=== PATIENT | female | born 1990 | race African-American/Black ===

== ENCOUNTER 2022-08-12 18:52 | Emergency (ER) | payer OTHER, SELFPAY ==
--- OUTSIDE RECORDS SUMMARY | 2022-08-12 19:26 | XMS REPORT | Continuity of Care Document ---
:1990 Author Organization [facility] t Address [address] [place] [address] Care Team Providers Name Role Phone PCP, PATIENT DOES NOT HAVE A Primary Care Physician Unavaila DAJA Wilks Attending Clinician Unavailable Daja Jaimes DO Attending Clinician GAVIN BRAUN Attending Clinician Unavailable Gavin Stone Attending Clinician Toi Dickinson Attending Clinician Unavailable González Phillips MD Attending Clinician DAJA JAIMES Admitting Clinician Unavailable Payers Payer Name Policy Type Policy Number Effective Date Expiration Date S ource Problems Condition Condition Condition Status Onset Resolution Last Treating Co mments Source Name Details Category Date Date Treatment Clinician Date Well woman Well woman Disease Active U nivers exam exam 08-08 ity of 00:00: [address] Missed Missed Disease Active Univers menses menses 07-25 ity of 00:00: [address] Encounter Encounter Disease Active Uni vers for for 1-15 ity of Depo[place] Medical contracept contracept Br anch ion ion Overweight Overweight Disease Active Overview : Univers 07-25 Formattin ity of 00:00: g of this note Medical might be Branch different from the original. ICD10 Diagnosis Term Chief Operating Engineer Utility Dysmenorrh Dysmenorrh Disease Active U nivers ea ea 07-25 ity of 00:00: [place] 00 Medical Branch Contracept Contracept Disease Active 2013-03 Overview : Univers kendra kendra 1-20 Formattin ity of management management 00:00: g of this note Medical might be Branch different from the original. ICD10 Diagnosis Term Chief Operating Engineer Utility UTI UTI Disease Active Univers (urinary (urinary 3-03 ity of tract tract 00:00: [place] infection) infection) 00 Me dical Branch Bacterial Bacterial Disease Active Uni vers vaginosis vaginosis 2- ity of 00:00: [place] 00 [facility] Problem Condition [facility] Allergies, Adverse Reactions, Alerts Allergy Allergy Status Severity Reaction(s) Onset Inactive Treating Comm ents Source Name Type Date Date Clinician NO KNOWN Drug Active Univers ALLERGIE Class ity of S [facility] Social History Social Habit Start Date Stop Date Quantity Comments Source Exposure to 2022-06-17 2022-06-27 Not sure [facility] SARS-CoV-2 00:00:00 22:56:00 [facility] (event) [place] Alcohol intake 2022-06-25 2022-06-25 0 /d University of 00:00:00 00:00:00 [facility] Tobacco use and 2014-12-18 2014-12-18 Smokeless tobacco Un iversity of exposure 00:00:00 00:00:00 non-user [facility] Tobacco Comment 2014-12-18 2014-12-18 smokes 3 times Unive rsity of 00:00:00 00:00:00 per day [facility] Alcohol Comment 2014-12-18 2014-12-18 socially Universit y of 00:00:00 00:00:00 [facility] History of 2013-01-02 Cigarette Smoker Universi ty of tobacco use 00:00:00 [facility] Sex Assigned At [address] [facility] 00[facility]00[facility]00 00:00:[address] [facility] Smoking Status Start Date Stop Date Source Unknown if ever smoked [facility] Smokes tobacco daily 2014-12-18 00:00:00 Univers [facility] [place] [facility] Medications Ordered Filled Start Stop Current Ordering Indication Dosage Frequency Signature Comments Components Source Medication Medication Date Date Medication? Clinician (SIG) Name Name haloperidol 2022- No 2.5mg 2.5 mg, U nivers lactate 06-28 Intravenou ity o f (HALDOL) 06:15: 06:17 [place], [place]CE[place] 1 [place] :[place] dose, On Medica l 2.5 mg Wed Branch 06/28/22 at 0115, STAT iopamidol 2022- No [id number] 80mL 80 mL, Univers (ISOVUE 06-28 Intravenou ity o f 370-500 mL) 05:30: 05:30 s, ONCE, 1 [place] injection 00 :00 dose, On Medica l 80 mL Wed Branch 06/28/22 at 0030, Routine ketorolac 2022- No 15mg 15 mg, Unive rs (TORADOL) 06-28 Slow IV ity of injection 05:15: 04:23 Push, [place] 15 mg 00 :00 ONCE, 1 Medical dose, On Branch 06/28/22 at 0015, BEATRICE proMETHazin 2022- No 12.5mg 12.5 mg, Univers e 06-28 IV ity of (PHENERGAN) 04:15: 04:23 Piggyback, [place] 12.5 mg in 00 :00 ONCE, 1 Medica l NaCl 0.9% dose, On Branch (NS) 50 mL Tue IV 06/27/22 at piggyback 2315, BEATRICE ondansetron 2022- No 4mg 4 mg, Slow Univers (ZOFRAN 06-26 IV Push, ity of (PF)) 04:15: 04:12 ONCE, 1 [place] injection 4 00 :00 dose, On Medi annamarie mg Sun Branch 06/25/22 at 2315, BEATRICE proMETHazin 2022-0 Yes [id number] 25mg Take 1 Univers e 25 mg -23 tablet by ity of tablet 00:00: mouth [place] 00 every 6 Medical (six) Branch hours as needed for Nausea and Vomiting (N/V). proMETHazin Yes [id number] 25mg Take 1 Univers e 25 mg 4-23 tablet by ity of tablet 00:00: mouth [place] 00 every 6 Medical (six) Branch hours as needed for Nausea and Vomiting (N/V). ketorolac 2020- No 60mg 60 mg, Unive rs (TORADOL) 09-29 Intramuscu ity of injection 08:15: 07:08 lar, ONCE, [place] 60 mg 00 :00 1 dose, Medical Tue Branch 09/30/19 at 0315, BEATRICE
Fa culty member approving Restricted medication : CLEMENCIADAVIDGONZÁLEZ traMADol 2019-0 Yes [id number] 50mg Take 1 Univers (ULTRAM) 50 7-28 tablet by ity of mg tablet 00:00: mouth [place] 00 every 6 Medical (six) Branch hours as needed for Pain (scale 7-10). Indication s: acute pain amoxicillin 2019-0 Yes [id number] 500mg Take 1 Univers 500 mg 7-28 capsule by ity of capsule 00:00: mouth 3 [place] 00 (three) Medical times Branch daily. traMADol 2019-0 Yes [id number] 50mg Take 1 Univers (ULTRAM) 50 7-28 tablet by ity of mg tablet 00:00: mouth [place] 00 every 6 Medical (six) Branch hours as needed for Pain (scale 7-10). Indication s: acute pain amoxicillin 2019-0 Yes [id number] 500mg Take 1 Univers 500 mg 7-28 capsule by ity of capsule 00:00: mouth 3 [place] 00 (three) Medical times Branch daily. traMADol 2020-0 Yes [id number] 50mg Take 1 Univers (ULTRAM) 50 7-28 tablet by ity of mg tablet 00:00: mouth [place] 00 every 6 Medical (six) Branch hours as needed for Pain (scale 7-10). Indication s: acute pain amoxicillin 2019-0 Yes [id number] 500mg Take 1 Univers 500 mg 7-28 capsule by ity of capsule 00:00: mouth 3 [place] 00 (three) Medical times Branch daily. metroNIDAZO Yes 500mg Take 1 Uni vers LE 500 mg 7-31 tablet by ity o f tablet 00:00: mouth 2 [place] 00 (two) Medical times Branch daily. metroNIDAZO 2016-0 Yes 500mg Take 1 Uni vers LE 500 mg 7-31 tablet by ity o f tablet 00:00: mouth 2 00 (two) Medical times Branch daily. metroNIDAZO Yes 500mg Take 1 Uni vers LE 500 mg 7-31 tablet by ity o f tablet 00:00: mouth 2 [place] 00 (two) Medical times Branch daily. acetaminoph Yes 1{tbl} Take 1 Un jose en-codeine 9-06 tablet by ity of (TYLENOL-CO 00:00: mouth [place] DEINE #3) 00 every 6 Medical 300-30 mg (six) Branch tablet hours as needed for Pain unrelieved by non-narcot ic analgesics . acetaminoph Yes 1{tbl} Take 1 Un jose en-codeine 9-06 tablet by ity of (TYLENOL-CO 00:00: mouth [place] DEINE #3) 00 every 6 Medical 300-30 mg (six) Branch tablet hours as needed for Pain unrelieved by non-narcot ic analgesics . acetaminoph Yes 1{tbl} Take 1 Un jose en-codeine 9-06 tablet by ity of (TYLENOL-CO 00:00: mouth [place] DEINE #3) 00 every 6 Medical 300-30 mg (six) Branch tablet hours as needed for Pain unrelieved by non-narcot ic analgesics . Nitrofurant Yes [id number] 100mg Take 1 Cap Univers oin&Nit. 1-15 by mouth 2 ity o f Macrocryst 00:00: (two) [place] (MACROBID) 00 times Medical 100 mg daily. Branch capsule Nitrofurant Yes [id number] 100mg Take 1 Cap Univers oin&Nit. 1-15 by mouth 2 ity o f Macrocryst 00:00: (two) [place] (MACROBID) 00 times Medical 100 mg daily. Branch capsule Nitrofurant Yes [id number] 100mg Take 1 Cap Univers oin&Nit. 1-15 by mouth 2 ity o f Macrocryst 00:00: (two) [place] (MACROBID) 00 times Medical 100 mg daily. Branch capsule Immunizations Ordered Filled Immunization Date Status Comments [facility] e Immunization Name Name HPV9 2016-08-08 Completed [facility] 00:00:00 [facility] HPV9 2016-08-08 Completed University of 00:00:00 [facility] HPV9 2016-08-08 Completed University of 00:00:00 [facility] TDAP (ADACEL) 2016-03-10 Completed University of VACCINE 00:00:00 [facility] TDAP (ADACEL) 2016-03-10 Completed University of VACCINE 00:00:00 [facility] TDAP (ADACEL) 2016-03-10 Completed University of VACCINE 00:00:00 [facility] HPV 2015-03-19 Completed University of 00:00:00 [facility] HPV 2015-03-19 Completed University of 00:00:00 [facility] HPV 2015-03-19 Completed University of 00:00:00 [facility] Rubella 2009-09-22 Completed University of 00:00:00 [facility] Rubella 2009-09-22 Completed University of 00:00:00 [facility] Rubella 2009-09-22 Completed University of 00:00:00 [facility] TD, NOS 2005-03-05 Completed University of 00:00:00 [facility] Td 2005-03-05 Completed University of 00:00:00 [facility] TD, NOS 2005-03-05 Completed University of 00:00:00 [facility] Vital Signs Vital Name Observation Time Observation Value Comments Source Heart rate 2022-06-28 05:00:00 89 /min [facility] Respiratory rate 2022-06-28 05:00:00 18 /min [facility] Oxygen saturation in 2022-06-28 05:00:00 99 /min [facility] Arterial blood by [facility] Pulse oximetry Branch Systolic blood 2022-06-28 05:00:00 102 mm[Hg] Univer sity of pressure [facility] Diastolic blood 2022-06-28 05:00:00 77 mm[Hg] Unive rsity of pressure [facility] Body temperature 2022-06-28 03:54:00 36.33 [facility]iana [facility] height 2022-06-28 03:54:00 172.7 cm [facility] Body weight 2022-06-28 03:54:00 83.915 kg [facility] BMI 2022-06-28 03:54:00 28.13 kg/m2 [facility] Systolic blood 2022-06-26 04:00:00 125 mm[Hg] Univer sity of pressure [place] [facility] Diastolic blood 2022-06-26 04:00:00 88 mm[Hg] Unive rsity of pressure [place] [facility] Heart rate 2022-06-26 04:00:00 70 /min [facility]i ty [facility] [place] [facility] Respiratory rate 2022-06-26 04:00:00 15 /min Univ ersity of [place] [facility] Oxygen saturation in 2022-06-26 04:00:00 100 /min University of Arterial blood by [facility] Pulse oximetry Branch Body temperature 2022-06-26 02:38:00 37.39 Cristiana Univ ersity [facility] [place] [facility] Body height 2022-06-26 02:38:00 172.7 cm [facility]i ty [facility] [place] [facility] Body weight 2022-06-26 02:38:00 83.915 kg [facility] [place] [facility] BMI 2022-06-26 02:38:00 28.13 kg/m2 [facility] [place] [facility] Systolic blood 2019-09-30 06:30:00 147 mm[Hg] Univer sity of pressure [place] [facility] Diastolic blood 2019-09-30 06:30:00 85 mm[Hg] Unive rsity of pressure [place] [facility] Heart rate 2019-09-30 06:30:00 85 /min [facility]i ty [facility] [place] [facility] Body temperature 2019-09-30 06:30:00 37.28 Cristiana Univ ersity [facility] [place] [facility] Respiratory rate 2019-09-30 06:30:00 20 /min Univ ersity [facility] [place] [facility] Body weight 2019-09-30 06:30:00 87.544 kg [facility] [place] [facility] BMI 2019-09-30 06:30:00 30.23 kg/m2 [facility] [place] [facility] Oxygen saturation in 2019-09-30 06:30:00 99 /min University of Arterial blood by [facility] Pulse oximetry Branch Systolic blood 2019-09-30 06:30:00 147 mm[Hg] Univer sity of pressure [place] [facility] Diastolic blood 2019-09-30 06:30:00 85 mm[Hg] Unive rsity of pressure [place] [facility] Heart rate 2019-09-30 06:30:00 85 /min [facility] [place] [facility] Body temperature 2019-09-30 06:30:00 37.28 Cristiana [facility] Respiratory rate 2019-09-30 06:30:00 20 /min [facility] Body weight 2019-09-30 06:30:00 87.544 kg [facility] BMI 2019-09-30 06:30:00 30.23 kg/m2 [facility] Oxygen saturation in 2019-09-30 06:30:00 99 /min [facility] blood by [facility] Pulse oximetry Branch Procedures Procedure Date / Time Performing Clinician Source Performed LIPASE 2022-06-28 04:08:00 Daja Jaimes [facility] COMP. METABOLIC PANEL 2022-06-28 04:08:00 Daja Jaimes [facility] ([id number] URINE DRUG (IMMUNOASSAY) 2022-06-28 04:08:00 Daja Jaimes [facility] - COMPREHENSIVE DRUG Medical Bra nch SCREEN CBC WITH DIFF 2022-06-28 04:08:00 Theodore [facility] URINALYSIS 2022-06-28 04:08:00 Theodore [facility] POCT TEST 2022-06-28 04:06:00 Daja Jaimes [facility] CONSENT/REFUSAL FOR 2022-06-28 03:36:24 Doctor Unassigned, No Un [facility] [facility] [place] DIAGNOSIS AND [facility] POCT TEST 2022-06-26 03:18:00 Gavin Braun [facility] COMP. METABOLIC PANEL 2022-06-26 03:17:00 [facility] ([id number]) [facility] CBC WITH DIFF 2022-06-26 03:17:00 Gavin Braun [facility] URINALYSIS 2022-06-26 03:17:00 Gavin Braun [facility] NOTICE OF PRIVACY 2022-06-26 02:30:49 Doctor Unassigned, No Univ [facility] PRACTICES [facility] CONSENT/REFUSAL FOR 2022-06-26 02:29:59 [facility]igned[facility] NOTICE OF PRIVACY 2019-09-30 06:22:28 Doctor Unassigned, No [facility] Name Medical Branch CONSENT/REFUSAL FOR 2019-09-30 06:22:16 Doctor Unassigned, No [facility] Name Medical Branch Encounters Start End Encounter Admission Attending Care Care Encounter Source Date/Time Date/Time Type Type Clinicians Facility Department ID 2020-12-31 Emergency [facility] [id number] Univers 09:10:02 ity [facility] 2022-06-27 2022-06-28 Emergency [facility] [id number] Univers 22:38:00 01:35:00 DAJA [facility] 2022-06-27 2022-06-28 [facility] [id number] Univers 22:38:00 01:35:00 Daja ESPINOZA [id number] i ty of [place] 4.2.7.2.686 [facility] [id number] [facility] 084 Branch 2022-06-25 2022-06-25 Emergency X BRAUN, [facility] ERT [id number] Univers 21:42:00 23:57:00 GAVIN spaulding [facility] 2022-06-25 2022-06-25 Emergency [facility] [id number] Univers 21:42:00 23:57:00 Gavin ESPINOZA [id number] i ty of [place] 4.2.7.2.686 [facility] [id number] [place] [address] Branch 2020-04-02 2020-04-02 [facility]ed [facility] [id number] 16:08:00 18:15:00 Emergency Toi Schwartz [facility]-EMERGEN l Health SERVICES/[facility] 2020-04-02 2020-04-02 Emergency ER [facility] [id number] 16:08:00 18:15:00 Toi -[id number] Kenny thompson [facility] 2019-09-30 2019-09-30 [facility] [id number] 01:30:53 02:32:00 González Espinoza [id number] [place] 4.2.7.2.686 [place] [id number] 2019-09-30 2019-09-30 Emergency Jacqueline [facility] [id number] Univers 01:30:53 02:32:00 González Espinoza [id number] ity of [place] 4.2.7.2.686 [facility] [id number] [place] [address] Branch Results Test Description Test Time Test Comments Results Result Comments Source POCT TEST 2022-06-28 04:06:00 Test Item Value Reference Range Interpretation Comme nts POCT PREG (test code = 1605) negative On board controls acceptable with C Line (test code = 3574) present POCT PREG LOT # (test code = 3575) [id number] POCT PREG TEST DATE (test code = 3576) Lab Interpretation (test code = 50291-6) [facility] (15971[facility]2022-06-26 03:54:43 Test Item Value Reference Range Interpretation Comments NA (test code = 140 mmol/L 135-145 5047275498) K (test code = 4.2 mmol/L 3.5-5.0 1617944414) CL (test code = 104 mmol/L 98-108 3024331706) CO2 TOTAL (test code 24 mmol/L 23-31 = 6787526325) AGAP (test code = 12 2-16 8355895682) BUN (test code = 17 mg/dL 7-23 6284175068) GLUCOSE (test code = 81 mg/dL 70-110 2936505719) CREATININE (test code 0.78 mg/dL 0.50-1.04 = 1512337875) TOTAL BILI (test code 0.3 mg/dL 0.1-1.1 = 9097114807) CALCIUM (test code = 9.5 mg/dL 8.6-10.6 1411149603) T PROTEIN (test code 7.5 g/dL 6.3-8.2 = 3267114929) ALBUMIN (test code = 4.4 g/dL 3.5-5.0 3587544042) ALK PHOS (test code = 41 U/L 34-122 1493151348) ALTv (test code = 18 U/L 5-35 2-6) AST(SGOT) (test code 18 U/L 13-40 = 2466340394) eGFR (test code = 86.1 mL/min/1.73m2 8975449856) MATT (test code = MATT) Association of Glomerular Filtration Rate (GFR) and Staging of Kidney Disease* + + +- +| GFR (mL/min/1.73 m2) ?| With Kidney Damage ?| ?Without Kidney Damage+ ------+ ----+ ------+| ?>90 ?| ?Stage one ?| ? Normal ?+ -+ + -+| ?60-89 ?| ?Stage two ?| ? Decreased GFR ? + + +- +| ?30-59 ?| ?Stage three ?| ? Stage three ? + + +- +| ?15-29 ?| ?Stage four ? | ? Stage four ?+ -+ + -+| ?<15 (or dialysis) ? ?| ?Stage five ? | ? Stage five ?+ -+ + -+ *Each stage assumes the associated GFR level has been in effect for at least three months. ?Stages 1 to 5, with or without kidney disease, indicate chronic kidney disease. Notes: Determination of stages one and two (with eGFR >59mL/min/1.73 m2) requires estimation of kidney damage for at least three months as defined by structural or functional abnormalities of the kidney, manifested by either:Pathological abnormalities or Markers of kidney damage (including abnormalities in the composition of the blood or urine or abnormalities in imaging tests). [facility] WITH [id number] 03:37:44 Test Item Value Reference Range Interpretation Comments WBC (test code = 8.55 See_Comment [Automated 0290-2) message] The sy stem which generated this result transmitted reference range : 4.30 - 11.10 10*3/?L. The reference range was not used to interpret this result as normal/abnormal . RBC (test code = 4.14 See_Comment [Automated 789-8) message] The sy stem which generated this result transmitted reference range : 3.93 - 5.25 10*6/?L. The reference range was not used to interpret this result as normal/abnormal . HGB (test code = 9.1 g/dL 11.6-15.0 L 718-7) HCT (test code = 30.7 % 35.7-45.2 L 4544-3) MCV (test code = 74.2 fL 80.6-95.5 L 787-2) MCH (test code = 22.0 pg 25.9-32.8 L 785-6) MCHC (test code = 29.6 g/dL 31.6-35.1 L 786-4) RDW-SD (test code = 45.4 fL 39.0-49.9 33385-6) RDW-CV (test code = 17.0 % 12.0-15.5 H 788-0) PLT (test code = 369 See_Comment H [Automated 777-3) message] The sy stem which generated this result transmitted reference range : 166 - 358 10*3/ ?L. The reference r philippe was not used to interpret this result as normal/abnormal . MPV (test code = 10.8 fL 9.5-12.9 98475-2) NRBC/100 WBC (test 0.0 See_Comment [Automat ed code = 2317274826) message] The system which generated this result transmitted reference range : 0.0 - 10.0 /100 WBCs. The refer ence range was not u sed to interpret th is result as normal/abnormal . NRBC x10^3 (test code See_Comment [Auto mated = 2037496222) message] The s ystem which generated this result transmitted reference range : 10*3/?L. The reference range was not used to interpret this result as normal/abnormal . GRAN MAT (NEUT) % 56.7 % (test code = 770-8) IMM GRAN % (test code 0.20 % = 4289645788) LYMPH % (test code = 32.3 % 736-9) MONO % (test code = 9.4 % 5905-5) EOS % (test code = 0.8 % 713-8) BASO % (test code = 0.6 % 706-2) GRAN MAT x10^3(ANC) 4.85 10*3/uL 1.88-7.09 (test code = 8786275345) IMM GRAN x10^3 (test 0.00-0.06 code = 2016492213) LYMPH x10^3 (test code 2.76 10*3/uL 1.32-3.29 = 731-0) MONO x10^3 (test code 0.80 10*3/uL 0.33-0.92 = 742-7) EOS x10^3 (test code = 0.07 10*3/uL 0.03-0.39 711-2) BASO x10^3 (test code 0.05 10*3/uL 0.01-0.07 = 704-7) Lab Interpretation Abnormal (test code = 40627-1) [id number] 03:18:00 Test Item Value Reference Range Interpretation Comments POCT PREG (test code = 1605) negative On board controls acceptable with present` C Line (test code = 3574) POCT PREG LOT # (test code = 3575) [id number] POCT PREG TEST DATE (test 10/11/2023 code = 3576) Lab Interpretation (test code = Normal 49175-7) [facility] [id number] 21:22:00 Test Item Value Reference Range Interpretation Comments Molecular Testing Not Detected NotDetected MM (test code = GCPCRT) Molecular Testing Not Detected NotDetected MM (test code = CHLAMPCRT) Molecular Testing MM (test code = PCRINTERP) Acc urate results are dep endent on adequate specimencollect ion, absence of inhi bitors and sufficient DNA to bedetected. Acc eptable specimens for t his test are vaginal orc ervical swabs (self col lected or clinician collected),firs t void urine (primary specimen for males), and liquidbased pap specimens.A res ult of "Inconclusive" warrants re-collection.V iability or infectivity can NOT be inferred sin ce targetDNA may p ersist in the absence of viable organisms. For Urine Sources Collect ion of urine volumes g reater than 20-40 mLs mayresult in sp ecimen dilution that m ay reduce testsens itivity; lesser volumes may not adequately rinseorganisms into the specimen Vaginitis Panel 3 by DNA [id number] 22:45:00 Test Item Value Reference Range Interpretation Comments Vaginitis Panel 3 by DNA Probe VPIIICANDI (test code = VP3) Vaginitis Panel 3 by DNA Probe N A (test code = VP31) Vaginitis Panel 3 by DNA Probe VPIIITRICH A (test code = VP31)
[2022-08-12 19:36] LABS: SARS-CoV-2 Antigen Rapid Res Negative (Negative)
[2022-08-12] MEDS ORDERED: LIDOCAINE VISCOUS 2% SOLN 15 ML UDC ONE (19:54)
[2022-08-12] MEDS ORDERED: MAGNES/ALUMIN/SIMET 30ML UCUP ONE (19:54)
[2022-08-12 20:26] LABS: Specific Gravity 1.025 (1.005-1.030); Urine Bacteria <20 /HPF (<20); Urine Bilirubin NEGATIVE (Negative); Urine Blood Negative (Negative); Urine Clarity Extremely Turbid (Clear); Urine Color Light-Yellow (Yellow); Urine Crystals Unidentified Few /HPF (None Seen); Urine Glucose NEGATIVE (Negative); Urine Mucus 2+ /HPF (None Seen); Urine Protein TRACE (Negative); Urine Urobilinogen Normal (Normal)
--- NOTE | 2022-08-12 20:55 | ER ---
Nurse's Notes [facility] Name: Clary Dias Age: 32 yrs Sex: Female : 1990 Arrival Date: 08/12/2022 Time: 18:52 Bed 11 Private MD: Diagnosis: Acute pharyngitis, unspecified Presentation: 08/12 18:58 Chief complaint: Patient states: SORE THROAT x3 DAYS. Coronavirus screen: At this time, bp the client does not indicate any symptoms associated with coronavirus-19. Ebola Screen: No symptoms or risks identified at this time. Initial Sepsis Screen: Does the patient meet any 2 criteria? No. Patient's initial sepsis screen is negative. Does the patient have a suspected source of infection? No. Patient's initial sepsis screen is negative. Risk Assessment: Do you want to hurt yourself or someone else? Patient reports no desire to harm self or others. Onset of symptoms is unknown. 18:58 Method Of Arrival: Ambulatory bp 18:58 Acuity: MARIA ISABEL 4 bp Triage Assessment: 19:00 General: Appears uncomfortable, ill, Behavior is calm, cooperative, appropriate for bp age. Pain: Complains of pain in neck. EENT: Throat has patchy exudate. Neuro: No deficits noted. Cardiovascular: No deficits noted. Respiratory: No deficits noted. GI: No signs and/or symptoms were reported involving the gastrointestinal system. : No signs and/or symptoms were reported regarding the genitourinary system. Derm: No deficits noted. Musculoskeletal: No deficits noted. Historical: - Allergies: 19:00 No Known Allergies; bp - Home Meds: 19:00 None [Active]; bp - PMHx: 19:00 None; bp - Immunization history:: Adult Immunizations up to date. - Social history:: Smoking status: Patient denies any tobacco usage or history of. Screenin:07 [facility] ED Fall Risk Assessment (Adult) History of falling in the last 3 months, pf1 including since admission No falls in past 3 months (0 pts) Confusion or Disorientation No (0 pts) Intoxicated or Sedated No (0 pts) Impaired Gait No (0 pts) Mobility Assist Device Used No (0 pt) Altered Elimination No (0 pt) Score/Fall Risk Level 0 - 2 = Low Risk Oriented to surroundings, Maintained a safe environment, Educated pt \T\ family on fall prevention, incl call for assistance when getting out of bed, Assessed \T\ reinforced patient's understanding of fall precautions, Provided non-skid footwear, Hourly rounding (assess needs \T\ fall precautionary measures) done, Used ambulatory aids as needed (educated on \T\ assisted with), Used gait belt as appropriate. Abuse screen: Denies threats or abuse. Nutritional screening: No deficits noted. Tuberculosis screening: No symptoms or risk factors identified. Assessment: 19:00 General: Appears in no apparent distress. comfortable, well groomed, well developed, pf1 Behavior is calm, cooperative, appropriate for age, quiet. 19:00 Pain: Complains of pain in sore throat. Neuro: No deficits noted. Level of pf1 Consciousness is awake, alert, obeys commands, Oriented to person, place, time, situation. Cardiovascular: No deficits noted. Capillary refill < 3 seconds Patient's skin is warm and dry. Respiratory: No deficits noted. Airway is patent Respiratory effort is even, unlabored, Respiratory pattern is regular, symmetrical. GI:. GI: Reports diarrhea. : No deficits noted. No signs and/or symptoms were reported regarding the genitourinary system. EENT: Reports sore throat for 3 days. Derm: No deficits noted. No signs and/or symptoms reported regarding the dermatologic system. 20:00 Reassessment: Patient appears in no apparent distress at this time. Patient and/or pf1 family updated on plan of care and expected duration. Pain level reassessed. Patient states symptoms have improved. Vital Signs: 18:58 BP 129 / 87; Pulse 94; Resp 16; Temp 98.2; Pulse Ox 100% ; bp 20:30 BP 141 / 86; Pulse 83; Resp 18; Temp 98.1(O); Pulse Ox 100% on R/A; Pain 4/10; pf1 20:30 Pain Scale: Adult pf1 ED Course: 18:55 Patient arrived in ED. im 18:56 Ju Guadalupe FNP-C [facility] kb 18:56 Nathaniel Corrigan MD is Attending Physician. kb 18:59 Triage completed. bp 19:00 Arm band placed on. bp 19:16 Strep Sent. bp 19:16 SARS RAPID Sent. bp 19:16 Flu Sent. bp 20:11 Urinalysis w/ reflexes Sent. pf1 Administered Medications: 19:50 Drug: GI Cocktail without - (Maalox PO Suspension 30 ml, Lidocaine Mucous pf1 Membrane Liquid 2 % 15 ml) Route: PO; 20:50 Follow up: Response: No adverse reaction; Marked relief of symptoms; Pain is decreased pf1 Outcome: 20:55 Discharge ordered by MD. carvajal 21:08 Patient left the ED. pf1 Signatures: Ju Guadalupe, KATIE-C KATIE-Xavier Nassar, MARILYN RN bp Loida Shetty, MARILYN RN pf1 Luz Bhandari
--- NOTE | 2022-08-12 20:55 | EDPHYS ---
Physician Documentation [facility] Name: Clary Dias Age: 32 yrs Sex: Female : 1990 Arrival Date: 08/12/2022 Time: 18:52 Bed 11 Private MD: ED Physician Nathaniel Corrigan HPI: 08/12 23:08 This 32 yrs old Black Female presents to ER via Ambulatory with complaints of Sore kb Throat. 23:08 The patient presents with sore throat. The patient describes throat pain as constant. kb Onset: The symptoms/episode began/occurred 3 day(s) ago. Severity of symptoms: At their worst the symptoms were moderate, in the emergency department the symptoms are unchanged. Modifying factors: The symptoms are alleviated by nothing, the symptoms are aggravated by swallowing, Patient's oral intake status: good. Associated signs and symptoms: Pertinent positives: diarrhea, Sore throat. The patient has not experienced similar symptoms in the past. The patient has not recently seen a physician. Historical: - Allergies: 19:00 No Known Allergies; bp - Home Meds: 19:00 None [Active]; bp - PMHx: 19:00 None; bp - Immunization history:: Adult Immunizations up to date. - Social history:: Smoking status: Patient denies any tobacco usage or history of. ROS: 23:08 Constitutional: Negative for fever, chills, and weight loss. kb 23:08 ENT: Positive for sore throat. 23:08 Abdomen/GI: Positive for diarrhea, Negative for abdominal pain, nausea and vomiting. 23:08 All other systems are negative. Exam: 23:08 Constitutional: This is a well developed, well nourished patient who is awake, alert, kb and in no acute distress. Head/Face: Normocephalic, atraumatic. ENT: Moist Mucous membranes Respiratory: Respirations even and unlabored. No increased work of breathing. Talking in full sentences Abdomen/GI: Soft, non-tender. No distention Skin: Warm, dry with normal turgor. Normal color. MS/ Extremity: Pulses equal, no cyanosis. Neurovascular intact. Full, normal range of motion. Neuro: Awake and alert, GCS 15, oriented to person, place, time, and situation. Moves all extremities. Normal gait. Vital Signs: 18:58 BP 129 / 87; Pulse 94; Resp 16; Temp 98.2; Pulse Ox 100% ; bp 20:30 BP 141 / 86; Pulse 83; Resp 18; Temp 98.1(O); Pulse Ox 100% on R/A; Pain 4/10; pf1 20:30 Pain Scale: Adult pf1 MDM: 18:56 Patient medically screened. kb 23:09 Differential diagnosis: pharyngitis, strep, viral illness, covid, flu. Data reviewed: kb vital signs, nurses notes. Counseling: I had a detailed discussion with the patient and/or guardian regarding: the historical points, exam findings, and any diagnostic results supporting the discharge/admit diagnosis, lab results, the need for outpatient follow up, a family practitioner, to return to the emergency department if symptoms worsen or persist or if there are any questions or concerns that arise at home. 08/12 19:01 Order name: Flu; Complete Time: 19:55 bp 08/12 19:01 Order name: SARS RAPID; Complete Time: 19:55 bp 08/12 19:01 Order name: Strep bp 08/12 19:38 Order name: Throat Culture EDMS 08/12 20:03 Order name: Urinalysis w/ reflexes; Complete Time: 20:26 pf1 Administered Medications: 19:50 Drug: GI Cocktail without - (Maalox PO Suspension 30 ml, Lidocaine Mucous pf1 Membrane Liquid 2 % 15 ml) Route: PO; 20:50 Follow up: Response: No adverse reaction; Marked relief of symptoms; Pain is decreased pf1 Disposition: 08/13 09:33 Co-signature as Attending Physician, Nathaniel Corrigan MD I reviewed the patient's care rn provided by the Advanced Practice Provider and agree with the diagnosis and treatment plan. Disposition Summary: 08/12/22 20:55 Discharge Ordered Location: Home kb Condition: Stable kb Diagnosis - Acute pharyngitis, unspecified kb Followup: kb - With: Emergency Department - When: As needed - Reason: Worsening of condition Followup: kb - With: Private Physician - When: 2 - 3 days - Reason: Recheck today's complaints, Continuance of care, Re-evaluation by your physician Discharge Instructions: - Discharge Summary Sheet kb - Pharyngitis, [id number] kb Forms: - Medication Reconciliation Form kb - Thank You Letter kb - Antibiotic Education kb - Prescription Opioid Use kb Signatures: Dispatcher [employer] Ju Luna, CLE[employer]ER [employer]ER-C CLE[employer]ER [employer] POL[employer]ER-Ckb Nathaniel Corrigan MD MD rn Xavier Neff, RN RN Loida Pinon RN RN pf1
[2022-08-12 21:27] VITALS: O2SAT 100
[2022-08-12 21:29] VITALS: BP 141/86; TEMP 98.1
== END 2022-08-12 21:08 | disposition home or self-care (01) ==
LOC: ER 18:52
DX: J02.9 Acute pharyngitis, unspecified (principal)
CPT/HCPCS: 36415; 81001; 87070; 87081; 87804; 87811; 99283

== ENCOUNTER → 2023-05-09 | Emergency (ER) | payer OTHER ==
[~2023-05-09] MED LIST: CEPHALEXIN 250 MG CAP ONE; FAMOTIDINE 20 MG/2 ML VIAL IV ONE; IBUPROFEN 400 MG TAB ONE; KETOROLAC 30 MG/ML INJ ONE; METOCLOPRAMIDE 10 MG/2mL INJ ONE; MORPHINE 4 MG/ML SYR ONE; NA CHLORIDE 0.9% 1,000 ML ONE; ONDANSETRON 4 MG (ODT) TAB ONE; ONDANSETRON 4 MG/2 ML VIAL ONE; PANTOPRAZOLE 40MG TABLET PO ONE; metroNIDAZOLE 500 MG TABLET ONE
--- OUTSIDE RECORDS SUMMARY | 2023-05-09 01:17 | XMS REPORT | Continuity of Care Document ---
Author Name Unknown Address [address] [facility] [address] [place] [address] [facility] thconnect Address [address] [facility]. [address] [place] [address] Care Team Providers Care Pharmacy General Manager Name Role Phone Pcp, Patient Does Not Have A Primary Care Physic ashley YEIMY ELIZONDO Attending Clinician Unavailable MARU HOGAN Attending Clinician UnavailMARU Farley Attending Clinician UnavailMaru Farley MD Attending Clinician [phone] Callum PEACE Attending Clinician Unavailable Callum Titus Attending Clinician [phone] Doctor Unassigned, [place] Attending Clinician U DARREL Alvarado Attending Clinician Unavailable Darrel Parker MD Attending Clinician [phone] DAJA JAIMES Attending Clinician Unavailab Daja King DO Attending Clinician [phone] GAVIN BRAUN Attending Clinician Unavailable Gavin Stone Attending Clinician [phone] Toi Dickinson Attending Clinician Unavailable González Phillips MD Attending Clinician [phone] DAJA JAIMES Admitting Clinician Unavailab le Payers Payer Name Policy Type Policy Number Effective Date Expirati on Date Source [employer] EXCHANGE [id number] 2023 00:00:00 Problems Condition Name Condition Details Condition Category Status Onset Date Resolution Date Last Treatment Date Treating Clinician Comments Source Well woman exam Well woman exam Disease Active 08-08 00:00: 00 [facility] Missed menses Missed menses Disease Active 07-25 00:00: 00 [facility] Encounter for Depo-Prove ra contracept ion Encounter for Depo-Prove ra contracept ion Disease Active 03-19 00:00: 00 [facility] Overweight Overweight Disease Active 07-25 00:00: 00 Overview: Formattin g of this note might be different from the original. ICD10 Diagnosis Term [employer] [facility] Dysmenorrh ea Dysmenorrh ea Disease Active 07-25 00:00: 00 [facility] Contracept kendra management Contracept kendra management Disease Active 2013-03 00:00: 00 Overview: Formattin g of this note might be different from the original. ICD10 Diagnosis Term [employer] [facility] UTI (urinary tract infection) UTI (urinary tract infection) Disease Active 3-03 00:00: 00 [facility] Bacterial vaginosis Bacterial vaginosis Disease Active 2- 00:00: 00 [facility] Problem Condition [facility] Allergies, Adverse Reactions, Alerts Allergy Name Allergy Type Status Severity Reaction(s) Onset Date Inactive Date Treating Clinician Comments Source NO KNOWN ALLERGIE S Drug Class Active [facility] Social History Social Habit Start Date Stop Date Quantity Comments Source Gender identity [facility] Sexual orientation [facility] History of Social function 2023-02-28 00:00:00 2023-02-28 00:00:00 [facility] Alcohol intake 2023-02-28 00:00:00 2023-02-28 00:00:00 0 /d [facility] Tobacco use and exposure 2023-02-28 00:00:00 2023-02-28 00:00:00 Smokeless tobacco non-user [facility] Tobacco Comment 2023-02-28 00:00:00 2023-02-28 00:00:00 smokes 3 times per day [facility] Exposure to SARS-CoV-2 (event) 2022-06-17 00:00:00 2022-06-27 22:56:00 Not sure [facility] Alcohol Comment 2014-12-18 00:00:00 2014-12-18 00:00:00 socially [facility] History of tobacco use 2013-01-02 00:00:00 Cigarette Smoker [facility] Sex Assigned At 1990 00:00:00 1990 00:00:00 Female [facility] Smoking Status Start Date Stop Date Source Unknown if ever smoked [facility] Never smoked tobacco [facility] Smokes tobacco daily 2014-12-18 00:00:00 [facility] Medications Ordered Medication Name Filled Medication Name Start Date Stop Date Current Medication? Ordering Clinician Indication Dosage Frequency Signature (SIG) Comments Components Source predniSONE (DELTASONE) tablet 20 mg 2022-03 08:00: 00 01-10 07:55 :00 No 20mg 20 mg, Oral, ONCE, 1 dose, On Sun01/10/23 at 0200, BEATRICE [facility] methylPREDN ISolone (MEDROL, LUIS,) 4 mg tablets 2022-03 00:00: 00 Yes [id number] Take by mouth SEE-INSTRU CTIONS. follow package directions [facility] chlorhexidi ne 0.12 % mouthwash 2022-03 00:00: 00 Yes [id number] 15mL Swish and spit out 15 mL in the morning and 15 mL in the evening. [facility] methylPREDN ISolone (MEDROL, LUIS,) 4 mg tablets 2022-03 00:00: 00 Yes [id number] Take by mouth SEE-INSTRU CTIONS. follow package directions [facility] chlorhexidi ne 0.12 % mouthwash 2022-03 00:00: 00 Yes [id number] 15mL Swish and spit out 15 mL in the morning and 15 mL in the evening. [facility] methylPREDN ISolone (MEDROL, LUIS,) 4 mg tablets 2022-03 00:00: 00 Yes [id number] Take by mouth SEE-INSTRU CTIONS. follow package directions [facility] chlorhexidi ne 0.12 % mouthwash 2022-03 00:00: 00 Yes [id number] 15mL Swish and spit out 15 mL in the morning and 15 mL in the evening. [facility] chlorhexidi ne 0.12 % mouthwash 10-08 00:00: 00 Yes [id number] 15mL Swish and spit out 15 mL in the morning and 15 mL in the evening. [facility] chlorhexidi ne 0.12 % mouthwash 10-08 00:00: 00 Yes [id number] 15mL Swish and spit out 15 mL in the morning and 15 mL in the evening. [facility] chlorhexidi ne 0.12 % mouthwash 10-08 00:00: 00 Yes [id number] 15mL Swish and spit out 15 mL in the morning and 15 mL in the evening. [facility] chlorhexidi ne 0.12 % mouthwash 10-08 00:00: 00 Yes [id number] 15mL Swish and spit out 15 mL in the morning and 15 mL in the evening. [facility] chlorhexidi ne 0.12 % mouthwash 10-08 00:00: 00 Yes [id number] 15mL Swish and spit out 15 mL in the morning and 15 mL in the evening. [facility] acetaminoph en-codeine 300-30 mg tablet 10-08 00:00: 00 10-16 04:59 :00 No [id number] 1{tbl} Take 1 tablet by mouth every 4 (four) hours as needed for Pain (scale 7-10) for up to 7 days. Indication s: acute pain [facility] predniSONE 20 mg tablet 8-06 00:00: 00 10-14 04:59 :00 No [id number] 20mg Take 1 tablet by mouth in the morning and 1 tablet in the evening. Do all this for 5 days. [facility] haloperidol lactate (HALDOL) injection 2.5 mg 06-28 06:15: 00 06-28 06:17 :00 No 2.5mg 2.5 mg, Intravenou s, ONCE, 1 dose, On Sun06/28/22 at 0115, STAT [facility] iopamidol (ISOVUE 370-500 mL) injection 80 mL 06-28 05:30: 00 06-28 05:30 :00 No [id number] 80mL 80 mL, Intravenou s, ONCE, 1 dose, On Sun06/28/22 at 0030, Routine [facility] ketorolac (TORADOL) injection 15 mg 06-28 05:15: 00 06-28 04:23 :00 No 15mg 15 mg, Slow IV Push, ONCE, 1 dose, [facility]28[facility] (PHENERGAN) 12.5 mg in NaCl 0.9% (NS) 50 mL IV piggyback 06-28 04:15: 00 06-28 04:23 :00 No 12.5mg 12.5 mg, IV Piggyback, ONCE, 1 dose, [facility] Sun06/27/22 [facility] 2315[facility] ondans[facility]ron (ZOFRAN (PF)) injection 4 mg 06-26 04:15: 00 06-26 04:12 :00 No 4mg 4 mg, Slow IV Push, ONCE, 1 dose, On Sun06/25/22 at 2315, [facility] proMETHazin e 25 mg tablet 06-25 00:00: 00 Yes [id number] 25mg Take 1 tablet by mouth every 6 (six) hours as needed for Nausea and Vomiting (N/V). [facility] proMETHazin e 25 mg tablet 06-25 00:00: 00 Yes [id number] 25mg Take 1 tablet by mouth every 6 (six) hours as needed for Nausea and Vomiting (N/V). [facility] proMETHazin e 25 mg tablet 06-25 00:00: 00 Yes [id number] 25mg Take 1 tablet by mouth every 6 (six) hours as needed for Nausea and Vomiting (N/V). [facility] proMETHazin e 25 mg tablet 06-25 00:00: 00 Yes [id number] 25mg Take 1 tablet by mouth every 6 (six) hours as needed for Nausea and Vomiting (N/V). [facility] proMETHazin e 25 mg tablet 06-25 00:00: 00 Yes [id number] 25mg Take 1 tablet by mouth every 6 (six) hours as needed for Nausea and Vomiting (N/V). [facility] proMETHazin e 25 mg tablet 06-25 00:00: 00 Yes [id number] 25mg Take 1 tablet by mouth every 6 (six) hours as needed for Nausea and Vomiting (N/V). [facility] proMETHazin e 25 mg tablet 06-25 00:00: 00 Yes [id number] 25mg Take 1 tablet by mouth every 6 (six) hours as needed for Nausea and Vomiting (N/V). [facility] ketorolac (TORADOL) injection 60 mg 09-29 08:15: 00 09-29 07:08 :00 No 60mg 60 mg, Intramuscu lar, ONCE, 1 dose, Sun09/30/19 at 0315, BEATRICE
Fa culty member approving Restricted medication : GONZÁLEZ PHILLIPS [facility] traMADol (ULTRAM) 50 mg tablet 09-29 00:00: 00 Yes [id number] 50mg Take 1 tablet by mouth every 6 (six) hours as needed for Pain (scale 7-10). Indication s: acute pain [facility] amoxicillin 500 mg capsule 09-29 00:00: 00 Yes [id number] 500mg Take 1 capsule by mouth 3 (three) times daily. [facility] traMADol (ULTRAM) 50 mg tablet 0 09-29 00:00: 00 Yes [id number] 50mg Take 1 tablet by mouth every 6 (six) hours as needed for Pain (scale 7-10). Indication s: acute pain [facility] amoxicillin 500 mg capsule 2019-0 7 00:00: 00 Yes [id number] 500mg Take 1 capsule by mouth 3 (three) times daily. [facility] traMADol (ULTRAM) 50 mg tablet 0 09-29 00:00: 00 Yes [id number] 50mg Take 1 tablet by mouth every 6 (six) hours as needed for Pain (scale 7-10). Indication s: acute pain [facility] amoxicillin 500 mg capsule 2019-0 09-29 00:00: 00 Yes [id number] 500mg Take 1 capsule by mouth 3 (three) times daily. [facility] traMADol (ULTRAM) 50 mg tablet 0 09-29 00:00: 00 Yes [id number] 50mg Take 1 tablet by mouth every 6 (six) hours as needed for Pain (scale 7-10). [facility]: [facility] 09-29 00:00: 00 Yes [id number] 500mg Take 1 capsule by mouth 3 (three) times daily. [facility] it[facility] traMADol (ULTRAM) 50 mg tablet 0 09-29 00:00: 00 Yes [id number] 50mg Take 1 tablet by mouth every 6 (six) hours as needed for Pain (scale 7-10). Indication s: [facility] 0 09-29 00:00: 00 Yes [id number] 500mg Take 1 capsule by mouth 3 (three) times daily. [facility] traMADol (ULTRAM) 50 mg tablet 0 09-29 00:00: 00 Yes [id number] 50mg Take 1 tablet by mouth every 6 (six) hours as needed for Pain (scale 7-10). Indication s: acute pain [facility] amoxicillin 500 mg capsule 2019-0 09-29 00:00: 00 Yes [id number] 500mg Take 1 capsule by mouth 3 (three) times daily. [facility] traMADol (ULTRAM) 50 mg tablet 09-29 00:00: 00 Yes [id number] 50mg Take 1 tablet by mouth every 6 (six) hours as needed for Pain (scale 7-10). Indication s: acute pain [facility] amoxicillin 500 mg capsule 09-29 00:00: 00 Yes [id number] 500mg Take 1 capsule by mouth 3 (three) times daily. [facility] traMADol (ULTRAM) 50 mg tablet 09-29 00:00: 00 Yes [id number] 50mg Take 1 tablet by mouth every 6 (six) hours as needed for Pain (scale 7-10). Indication s: acute pain [facility] amoxicillin 500 mg capsule 09-29 00:00: 00 Yes [id number] 500mg Take 1 capsule by mouth 3 (three) times daily. [facility] metroNIDAZO LE 500 mg tablet 10-02 00:00: 00 Yes 500mg Take 1 tablet by mouth 2 (two) times daily. [facility] metroNIDAZO LE 500 mg tablet 10-02 00:00: 00 Yes 500mg Take 1 tablet by mouth 2 (two) times daily. [facility] metroNIDAZO LE 500 mg tablet 10-02 00:00: 00 Yes 500mg Take 1 tablet by mouth 2 (two) times daily. [facility] metroNIDAZO LE 500 mg tablet 10-02 00:00: 00 Yes 500mg Take 1 tablet by mouth 2 (two) times daily. [facility] metroNIDAZO LE 500 mg tablet 10-02 00:00: 00 Yes 500mg Take 1 tablet by mouth 2 (two) times daily. [facility] metroNIDAZO LE 500 mg tablet 10-02 00:00: 00 Yes 500mg Take 1 tablet by mouth 2 (two) times daily. [facility] metroNIDAZO LE 500 mg tablet 10-02 00:00: 00 Yes 500mg Take 1 tablet by mouth 2 (two) times daily. [facility] metroNIDAZO LE 500 mg tablet 7 00:00: 00 Yes 500mg Take 1 tablet by mouth 2 (two) times daily. [facility] acetaminoph en-codeine (TYLENOL-CO DEINE #3) 300-30 mg tablet 11-08 00:00: 00 Yes 1{tbl} Take 1 tablet by mouth every 6 (six) hours as needed for Pain unrelieved by non-narcot ic analgesics . [facility] acetaminoph en-codeine (TYLENOL-CO DEINE #3) 300-30 mg tablet 11-08 00:00: 00 Yes 1{tbl} Take 1 tablet by mouth every 6 (six) hours as needed for Pain unrelieved by non-narcot ic analgesics . [facility] acetaminoph en-codeine (TYLENOL-CO DEINE #3) 300-30 mg tablet 11-08 00:00: 00 Yes 1{tbl} Take 1 tablet by mouth every 6 (six) hours as needed for Pain unrelieved by non-narcot ic analgesics . [facility] acetaminoph en-codeine (TYLENOL-CO DEINE #3) 300-30 mg tablet 11-08 00:00: 00 Yes 1{tbl} Take 1 tablet by mouth every 6 (six) hours as needed for Pain unrelieved by non-narcot ic analgesics . [facility] acetaminoph en-codeine (TYLENOL-CO DEINE #3) 300-30 mg tablet 11-08 00:00: 00 Yes 1{tbl} Take 1 tablet by mouth every 6 (six) hours as needed for Pain unrelieved by non-narcot ic analgesics . [facility] acetaminoph en-codeine (TYLENOL-CO DEINE #3) 300-30 mg tablet 11-08 00:00: 00 Yes 1{tbl} Take 1 tablet by mouth every 6 (six) hours as needed for Pain unrelieved by non-narcot ic analgesics . [facility] acetaminoph en-codeine (TYLENOL-CO DEINE #3) 300-30 mg tablet 11-08 00:00: 00 Yes 1{tbl} Take 1 tablet by mouth every 6 (six) hours as needed for Pain unrelieved by non-narcot ic analgesics . [facility] acetaminoph en-codeine (TYLENOL-CO DEINE #3) 300-30 mg tablet 11-08 00:00: 00 Yes 1{tbl} Take 1 tablet by mouth every 6 (six) hours as needed for Pain unrelieved by non-narcot ic analgesics . [facility] Nitrofurant oin&Nit. Macrocryst (MACROBID) 100 mg capsule 03-19 00:00: 00 Yes [id number] 100mg Take 1 Cap by mouth 2 (two) times daily. [facility] Nitrofurant oin&Nit. Macrocryst (MACROBID) 100 mg capsule 03-19 00:00: 00 Yes [id number] 100mg Take 1 Cap by mouth 2 (two) times daily. [facility] Nitrofurant oin&Nit. Macrocryst (MACROBID) 100 mg capsule 03-19 00:00: 00 Yes [id number] 100mg Take 1 Cap by mouth 2 (two) times daily. [facility] Nitrofurant oin&Nit. Macrocryst (MACROBID) 100 mg capsule 03-19 00:00: 00 Yes [id number] 100mg Take 1 Cap by mouth 2 (two) times daily. [facility] Nitrofurant oin&Nit. Macrocryst (MACROBID) 100 mg capsule 03-19 00:00: 00 Yes [id number] 100mg Take 1 Cap by mouth 2 (two) times daily. [facility] Nitrofurant oin&Nit. Macrocryst (MACROBID) 100 mg capsule 03-19 00:00: 00 Yes [id number] 100mg Take 1 Cap by mouth 2 (two) times daily. [facility] Nitrofurant oin&Nit. Macrocryst (MACROBID) 100 mg capsule 03-19 00:00: 00 Yes [id number] 100mg Take 1 Cap by mouth 2 (two) times daily. [facility] Nitrofurant oin&Nit. Macrocryst (MACROBID) 100 mg capsule 03-19 00:00: 00 Yes [id number] 100mg Take 1 Cap by mouth 2 (two) times daily. [facility] Immunizations Ordered Immunization Name Filled Immunization Name Date Status Comments Source HPV9 2016-08-08 00:00:00 Completed [facility] HPV9 2016-08-08 00:00:00 Completed [facility] HPV9 2016-08-08 00:00:00 Completed [facility] HPV9 2016-08-08 00:00:00 Completed [facility] TDAP (ADACEL) VACCINE 2016-03-10 00:00:00 Completed [facility] TDAP (ADACEL) VACCINE 2016-03-10 00:00:00 Completed [facility] TDAP (ADACEL) VACCINE 2016-03-10 00:00:00 Completed [facility] TDAP (ADACEL) VACCINE 2016-03-10 00:00:00 Completed [facility] HPV 2015-03-19 00:00:00 Completed [facility] HPV 2015-03-19 00:00:00 Completed [facility] HPV 2015-03-19 00:00:00 Completed [facility] HPV 2015-03-19 00:00:00 Completed [facility] Rubella 2009-09-22 00:00:00 Completed [facility] Rubella 2009-09-22 00:00:00 Completed [facility] Rubella 2009-09-22 00:00:00 Completed [facility] Rubella 2009-09-22 00:00:00 Completed [facility] TD, NOS 2005-03-05 00:00:00 Completed [facility] TD, NOS 2005-03-05 00:00:00 Completed [facility] Td 2005-03-05 00:00:00 Completed [facility] TD, NOS 2005-03-05 00:00:00 Completed [facility] Rubella Unknown Completed [facility] TD, NOS Unknown Completed [facility] HPV Unknown Completed [facility] TDAP (ADACEL) VACCINE Unknown Completed [facility] HPV9 Unknown Completed [facility] Rubella Unknown Completed [facility] TD, NOS Unknown Completed [facility] HPV Unknown Completed [facility] TDAP (ADACEL) VACCINE Unknown Completed [facility] HPV9 Unknown Completed [facility] Rubella Unknown Completed [facility] TD, NOS Unknown Completed [facility] HPV Unknown Completed [facility] TDAP (ADACEL) VACCINE Unknown Completed [facility] HPV9 Unknown Completed [facility] Rubella Unknown Completed [facility] TD, NOS Unknown Completed [facility] HPV Unknown Completed [facility] TDAP (ADACEL) VACCINE Unknown Completed [facility] HPV9 Unknown Completed [facility] Vital Signs Vital Name Observation Time Observation Value Comments S ource Systolic blood pressure 2023-02-28 22:25:00 115 mm[Hg] [facility] Diastolic blood pressure 2023-02-28 22:25:00 77 mm[Hg] [facility] Heart rate 2023-02-28 22:25:00 80 /min [facility] Respiratory rate 2023-02-28 22:25:00 18 /min [facility] Body height 2023-02-28 22:25:00 172.7 cm [facility] Body weight 2023-02-28 22:25:00 90.719 kg [facility] BMI 2023-02-28 22:25:00 30.41 kg/m2 [facility] Oxygen saturation in Arterial blood by Pulse oximetry 2023-02-28 22:25:00 98 /min [facility] Systolic blood pressure 2023 06:38:00 130 mm[Hg] [facility] Diastolic blood pressure 2023 06:38:00 88 mm[Hg] [facility] Heart rate 2023 06:38:00 77 /min [facility] Body temperature 2023 06:38:00 37.22 Cristiana [facility] Respiratory rate 2023 06:38:00 18 /min [facility] Body height 2023 06:38:00 172.7 cm [facility] Body weight 2023 06:38:00 88.905 kg [facility] BMI 2023 06:38:00 29.80 kg/m2 [facility] Oxygen saturation in Arterial blood by Pulse oximetry 2023 06:38:00 100 /min [facility] Systolic blood pressure 2022-10-08 18:10:00 135 mm[Hg] [facility] Diastolic blood pressure 2022-10-08 18:10:00 92 mm[Hg] [facility] Heart rate 2022-10-08 18:10:00 83 /min [facility] Body temperature 2022-10-08 18:10:00 36.72 Cristiana [facility] Respiratory rate 2022-10-08 18:10:00 18 /min [facility] Body height 2022-10-08 18:10:00 170.2 cm [facility] Body weight 2022-10-08 18:10:00 86.183 kg [facility] BMI 2022-10-08 18:10:00 29.76 kg/m2 [facility] Oxygen saturation in Arterial blood by Pulse oximetry 2022-10-08 18:10:00 98 /min [facility] Systolic blood pressure 2022-06-28 05:00:00 102 mm[Hg] [facility] Diastolic blood pressure 2022-06-28 05:00:00 77 mm[Hg] [facility] Heart rate 2022-06-28 05:00:00 89 /min [facility] Respiratory rate 2022-06-28 05:00:00 18 /min [facility] Oxygen saturation in Arterial blood by Pulse oximetry 2022-06-28 05:00:00 99 /min [facility] Body temperature 2022-06-28 03:54:00 36.33 Cristiana [facility] Body height 2022-06-28 03:54:00 172.7 cm [facility] Body weight 2022-06-28 03:54:00 83.915 kg [facility] BMI 2022-06-28 03:54:00 28.13 kg/m2 [facility] Systolic blood pressure 2022-06-26 04:00:00 125 mm[Hg] [facility] Diastolic blood pressure 2022-06-26 04:00:00 88 mm[Hg] [facility] Heart rate 2022-06-26 04:00:00 70 /min [facility] Respiratory rate 2022-06-26 04:00:00 15 /min [facility] Oxygen saturation in Arterial blood by Pulse oximetry 2022-06-26 04:00:00 100 /min [facility] Body temperature 2022-06-26 02:38:00 37.39 Cristiana [facility] Body height 2022-06-26 02:38:00 172.7 cm [facility] Body weight 2022-06-26 02:38:00 83.915 kg [facility] BMI 2022-06-26 02:38:00 28.13 kg/m2 [facility] Systolic blood pressure 2019-09-30 06:30:00 147 mm[Hg] [facility] Diastolic blood pressure 2019-09-30 06:30:00 85 mm[Hg] [facility] Heart rate 2019-09-30 06:30:00 85 /min [facility] Body temperature 2019-09-30 06:30:00 37.28 Cristiana [facility] Respiratory rate 2019-09-30 06:30:00 20 /min [facility] Body weight 2019-09-30 06:30:00 87.544 kg [facility] BMI 2019-09-30 06:30:00 30.23 kg/m2 [facility] Oxygen saturation in Arterial blood by Pulse oximetry 2019-09-30 06:30:00 99 /min [facility] Systolic blood pressure 2019-09-30 06:30:00 147 mm[Hg] [facility] Diastolic blood pressure 2019-09-30 06:30:00 85 mm[Hg] [facility] Heart rate 2019-09-30 06:30:00 85 /min [facility] Body temperature 2019-09-30 06:30:00 37.28 Cristiana [facility] Respiratory rate 2019-09-30 06:30:00 20 /min [facility] Body weight 2019-09-30 06:30:00 87.544 [facility] [facility] BMI 2019-09-30 06:30:00 30.23 kg/m2 [facility] Oxygen saturation in Arterial blood by Pulse oximetry 2019-09-30 06:30:00 99 /min Velpen o [facility] Procedures Procedure Date / Time Performed Performing Clinician Source ASSIGNMENT OF BENEFITS 2023 07:14:42 Docto r Unassigned, [place] [facility] CONSENT/REFUSAL FOR DIAGNOSIS AND TREATMENT 2023 06:34:46 Doctor Unassigned, [place] [facility] ASSIGNMENT OF BENEFITS 2022-10-08 19:04:08 Docto r Unassigned, [place] [facility] CONSENT/REFUSAL FOR DIAGNOSIS AND TREATMENT 2022-10-08 18:03:05 Doctor Unassigned, [place] [facility] LIPASE 2022-06-28 04:08:00 Daja Jaimes [facility] COMP. METABOLIC PANEL (83801) 2022-06-28 04:08:00 Daja Jaimes [facility] URINE DRUG (IMMUNOASSAY) - COMPREHENSIVE DRUG SCREEN 2022-06-28 04:08:00 Daja Jaimes [facility] CBC WITH DIFF 2022-06-28 04:08:00 [facility] 2022-06-28 04:08:00 Daja Jaimes [facility] POCT TEST 2022-06-28 04:06:00 Graham Jaimes [facility] CONSENT/REFUSAL FOR DIAGNOSIS AND TREATMENT 2022-06-28 03:36:24 Doctor Unassigned, [place] [facility] POCT TEST 2022-06-26 03:18:00 Maria Teresa Braun [facility] COMP. METABOLIC PANEL ([id number]) 2022-06-26 03:17:00 Gavin Braun [facility] CBC WITH DIFF 2022-06-26 03:17:00 Gavin Braun [facility] URINALYSIS 2022-06-26 03:17:00 Gavin Braun [facility] NOTICE OF PRIVACY PRACTICES 2022-06-26 02:30:49 Doctor Unassigned, [place] [facility] CONSENT/REFUSAL FOR DIAGNOSIS AND TREATMENT 2022-06-26 02:29:59 Doctor Unassigned, [place] [facility] NOTICE OF PRIVACY PRACTICES 2019-09-30 06:22:28 Doctor Unassigned, [place] [facility] CONSENT/REFUSAL FOR DIAGNOSIS AND TREATMENT 2019-09-30 06:22:16 Doctor Unassigned, [place] [facility] Encounters Start Date/Time End Date/Time Encounter Type Admission Type Attending [facility] Care Facility Care Department Encounter ID Source 2020-12-31 09:10:02 Emergency [facility] [id number] [facility] 2023-04-10 11:15:00 2023-04-10 11:15:00 Outpatient [facility] [id number] [facility] 2023-02-28 16:00:00 2023-02-28 16:48:05 Outpatient R MARU HOGAN CRAIG [facility] [id number] [facility] 2023-02-28 16:00:00 2023-02-28 16:48:05 Office Visit Maru Hogan [facility] 1..840.114 350.1.13.10 4.2.7.2.686 [id number] [facility] 2023 00:42:00 2023 02:02:00 Emergency X Callum PEACE [facility] ERT [id number] [facility] 2023 00:42:00 2023 02:02:00 Emergency Callum Peace [facility] 1..840.114 350.1.13.10 4.2.7.2.686 [id number] [facility] 2022-10-09 00:00:00 2022-10-09 00:00:00 Patient Secure Msg Doctor Unassigned, [place] [facility] 1..840.114 350.1.13.10 4.2.7.2.686 [id number] [facility] 2022-10-08 13:13:00 2022-10-08 15:00:00 Emergency X DARREL PARKER [facility] ERT [id number] [facility] 2022-10-08 13:13:00 2022-10-08 15:00:00 Emergency Darrel Parker [facility] 1..840.114 350.1.13.10 4.2.7.2.686 [id number] [id number] [facility] 2022-06-27 22:38:00 2022-06-28 01:35:00 Emergency X DAJA JAIMES [facility] ERT [id number] [facility] 2022-06-27 22:38:00 2022-06-28 01:35:00 Emergency DoyleelginDaja arias [facility] 1..840.114 350.1.13.10 4.2.7.2.686 [id number] [facility] 2022-06-25 21:42:00 2022-06-25 23:57:00 Emergency X GAVIN BRAUN [facility] ERT [id number] [facility] 2022-06-25 21:42:00 2022-06-25 23:57:00 Emergency BraunGavin grissom [facility] 1..840.114 350.1.13.10 4.2.7.2.686 [id number] [facility] 2020-04-02 16:08:00 2020-04-02 18:15:00 Departed Emergency ER Toi Dickinson [facility]/MS [facility] [id number] 09 [facility] 2020-04-02 16:08:00 2020-04-02 18:15:00 Emergency ER Toi Dickinson [facility] [id number] [facility] Hallie temple 2019-09-30 01:30:53 2019-09-30 02:32:00 Emergency [facility] 1.2.840.114 350.1.13.10 4.2.7.2.686 [id number] 2019-09-30 01:30:53 2019-09-30 02:32:00 Emergency [facility] 1.2.840.114 350.1.13.10 4.2.7.2.686 [id number] [facility] Results Test Description Test Time Test Comments Results Result Co mments Source [facility] (42375)2022-06-26 03:54:43* Test Item Value Reference Range Interpretation Comme nts NA (test code = 2865947947) 140 mmol/L 135-145 K (test code = 5026708646) 4.2 mmol/L 3.5-5.0 CL (test code = 7050099709) 104 mmol/L 98-108 CO2 TOTAL (test code = 7273436067) 24 mmol/L 23-31 AGAP (test code = 4193273353) 12 2-16 BUN (test code = 9223454575) 17 mg/dL 7-23 GLUCOSE (test code = 1668998922) 81 mg/dL 70-110 CREATININE (test code = 4034013327) 0.78 mg/dL 0.50-1.04 TOTAL BILI (test code = 6973985740) 0.3 mg/dL 0.1-1.1 CALCIUM (test code = 3170677244) 9.5 mg/dL 8.6-10.6 T PROTEIN (test code = 2447118645) 7.5 g/dL 6.3-8.2 ALBUMIN (test code = 6563869242) 4.4 g/dL 3.5-5.0 ALK PHOS (test code = 6265369546) 41 U/L 34-122 ALTv (test code = 1742-6) 18 U/L 5-35 AST(SGOT) (test code = 8477052394) 18 U/L 13-40 eGFR (test code = 7210746002) 86.1 mL/min/1.73m2 MATT (test code = MATT) Association of [...] or urine or abnormalities in imaging tests). [facility] WITH APNX6727-45-70 03:37:44* Test Item Value Reference Range Interpretation Comme nts WBC (test code = 6690-2) 8.55 See_Comment [Automated Meitu] The system which generated this result transmitted reference range: 4.30 - 11.10 10*3/?L. The reference range was not used to interpret this result as normal/abnormal. RBC (test code = 789-8) 4.14 See_Comment [Automated messa ge] The system which generated this result transmitted reference range: 3.93 - 5.25 10*6/?L. The reference range was not used to interpret this result as normal/abnormal. HGB (test code = 718-7) 9.1 g/dL 11.6-15.0 L HCT (test code = 4544-3) 30.7 % 35.7-45.2 L MCV (test code = 787-2) 74.2 fL 80.6-95.5 L MCH (test code = 785-6) 22.0 pg 25.9-32.8 L MCHC (test code = 786-4) 29.6 g/dL 31.6-35.1 L RDW-SD (test code = 77342-4) 45.4 fL 39.0-49.9 RDW-CV (test code = 788-0) 17.0 % 12.0-15.5 H PLT (test code = 777-3) 369 See_Comment H [Automated messa ge] The system which generated this result transmitted reference range: 166 - 358 10*3/?L. The reference range was not used to interpret this result as normal/abnormal. MPV (test code = 39744-0) 10.8 fL 9.5-12.9 NRBC/100 WBC (test code = 5766837195) 0.0 See_Comment [Automated [employer] ssage] The system which generated this result transmitted reference range: 0.0 - 10.0 /100 WBCs. The reference range was not used to interpret this result as normal/abnormal. NRBC x10^3 (test code = 0545344621) See_Comment [Automated messa ge] The system which generated this result transmitted reference range: 10*3/?L. The reference range was not used to interpret this result as normal/abnormal. GRAN MAT (NEUT) % (test code = 770-8) 56.7 % IMM GRAN % (test code = 2107413717) 0.20 % LYMPH % (test code = 736-9) 32.3 % MONO % (test code = 5905-5) 9.4 % EOS % (test code = 713-8) 0.8 % BASO % (test code = 706-2) 0.6 % GRAN MAT x10^3(ANC) (test code = 9623005763) 4.85 10*3/uL 1.88-7.09 IMM GRAN x10^3 (test code = 6042166346) 0.00-0.06 LYMPH x10^3 (test code = 731-0) 2.76 10*3/uL 1.32-3.29 MONO x10^3 (test code = 742-7) 0.80 10*3/uL 0.33-0.92 EOS x10^3 (test code = 711-2) 0.07 10*3/uL 0.03-0.39 BASO x10^3 (test code = 704-7) 0.05 10*3/uL 0.01-0.07 Lab Interpretation (test code = 22879-1) Abnormal [facility] BEWB0973[facility]15-72 03:18:00* Test Item Value Reference Range Interpretation Comme nts POCT PREG (test code = 1605) negative On board controls acceptable with C Line (test code = 3574) present` POCT PREG LOT # (test code = 3575) [id number] POCT PREG TEST DATE ( test code = 3576) 10/11/2023 Lab Interpretation (test cod e = 03419-4) Normal [facility] [id number] 21:22:00* Test Item Value Reference Range Interpretation Comme nts Molecular Testing MM (test code = GCPCRT) Not Detected NotDetected Molecular Testing MM (test code = CHLAMPCRT) Not Detected NotDetected Molecular Testing MM (test code = PCRINTERP) Accurate results are dependent on adequate specimencollection, absence of inhibitors and sufficient DNA to bedetected. Acceptable specimens for this test are vaginal orcervical swabs (self collected or clinician collected),first void urine (primary specimen for males), and liquidbased pap specimens.A result of "Inconclusive" warrants re-collection.Viability or infectivity can NOT be inferred since targetDNA may persist in the absence of viable organisms. For Urine Sources Collection of urine volumes greater than 20-40 mLs mayresult in specimen dilution that may reduce testsensitivity; lesser volumes may not adequately rinseorganisms into the specimen Vaginitis Panel 3 by DNA Opglc4672-90-29 22:45:00* Test Item Value Reference Range Interpretation Comme nts Vaginitis Panel 3 by DNA Pro be (test code = VP3) VPIIICANDI Vaginitis Panel 3 by DNA Pro be (test code = VP31) N A Vaginitis Panel 3 by DNA Pro be (test code = VP31) VPIIITRICH A Notes Date/Time Note Provider Source 2022-10-08 14:59:40 8+G1jKB+LPq7L6+ay2Ya +kE10IvPicBsrWT KF9dGgL6joP9QDMtssNQPnM6DMDkh0370-7 8T14:59:40 PT D/C home. GCS15, VS stable, no ataxia noted. Given three e-prescriptions and D/C paperwork. Pt ambulatory at time of discharge. Pt educated on tongue lesion, med usage, follow up care, s/s worsening condition. Pt verbalized understanding. Work/school note was not given. 68786-4Borwasqnw department EehbOB8017-22-50Q04:00:22Emernea [facility] department NoteTXT1.2.840.750471.1.13.104.2.7. 2.249207|[id number] for patient tptl86046-6HwrsSO753275314Pjdegfm Katt [address] Ox[id number] 0QXXCFTBMRMCLBAHWFTAEBD6606-68-52N5 5:00:221.2.840.542465.1.72.3.15|1.2 .840.264872.1.13.104.2.7.2.727879_1 [id number] Rachael Katt SANDERS [facility] 2022-10-08 13:07:39 9+mqis8yJYWLRDLKqiBK xRpS+3cxpvnMsKR Hs31cHDQAiPxc8PBUdSnVjeuAtNTu3327-5 3:07:39 Pt arrived via private car with c/o pain to the left side of her tongue, discolored area noted. States on 10/01/2022 she started taking Bactrim DS for a uti. States she took the medication x3 days and started to have the tongue pain and stopped taking it, she states that even though she has stopped the medication the pain is becoming worse and the area of discoloration is becoming larger. Pt denies pain anywhere else. 58651-2Muiwpdonw department Triage pjzeIP0294-94-05A77:12:45Emergency department Triage noteTXT1.2.840.417304.1.13.104.2.7. 2.675235|[id number] for patient hksz70514-9Kbhpjrpsv department Note[address] Jf[id number] 8LPBMATPEBTITUUFANOSJHK6579-09-14N1 3:12:451.2.840.757257.1.72.3.15|1.2 .840.164436.1.13.104.2.7.2.727879_1 [id number] [facility] 2022-10-08 13:01:00 oM1cJUFNLz6UCgZA1O6U Hd9XkLfivsUK0Uu 2uWYqEeMjic4y2U/zdAO+k482yF9h9086-1 10-08T13:01:[address] [facility] Emergency Department NotePatient Name: Clary Grey Caro WatsonDate of : 1990 32 year old femaleTreatment Room: [place] [address]Medical Record Number: [id number] Care Physician: PATIENT DOES NOT HAVE A PCPPatient Escorted by: Self [9]Mode of Arrival: Personal means [1]EMS Treatment Prior to ED Arrival: Travel and Exposure Screening:SymptomsDoes patient have any of these symptoms?: (not recorded)Exposure ScreeningHas patient had contact with someone with a communicable disease in the last month?: (not recorded)Diseases exposed to:: (not recorded)Is Patient ?: (not recorded)Exposure Date: (not recorded)Chief Complaint:Chief Complaint Patient presents with Tongue Problem History of Present Illness:32 y.o. female with c/o pain/swelling to left lateral tongue x 3-4 days after taking Bactrim for UTI. Denies any other rash or swelling. Persistent pain is what prompted ed visit.Past Medical History/Immunizations:Past Medical History: Diagnosis Date Anemia of mother in , antepartum 05/01/2013 Bacterial vaginosis 04/30/2013 Dysmenorrhea 07/25/2014 Hypertension 2011 during UTI (urinary tract infection) Allergies:No Known AllergiesPast Social History:Tobacco Use Every Day; Cigarettes: Last attempted to quit 01/02/2013 Smokeless Tobacco: Never used smokeless tobacco. Comments: smokes 3 times per day Alcohol Use Yes; 0.0 standard drinks of alcohol per week; 0 Standard drinks or equivalent. Comments: socially Drug Use No. Sexual Activity Sexually active; Partners: Male; Control/Protection: Injection. Past Surgical History:Past Surgical History: Procedure Laterality Date SECTION 2010 Review of Systems: Review of Systems Constitutional: Negative. HENT: Tongue pain Eyes: Negative. Respiratory: Negative. Breasts: Negative. Cardiovascular: Negative. Gastrointestinal: Negative. Genitourinary: Negative. Musculoskeletal: Negative. Skin: Negative. Neurological: Negative. Psychiatric/Behavioral: Negative. Endocrine: Endocrine negativePhysical Exam: ED Triage Vitals [10/08/22 1310] Weight 86.2 kg (190 lb) Actual or estimated Estimated by patient/family report Height 1.702 m (5' 7") BP (!) 135/92 Pulse 83 Resp 18 Temp 36.7 ?C (98.1 ?F) Temp source Oral SpO2 98 % Measured on Room air Physical ExamVitals and nursing note reviewed. Constitutional: Appearance: Normal appearance. HENT: Head: Normocephalic and atraumatic. Nose: Nose normal. Mouth/Throat: Comments: Left lateral tongue superficial ulceration, well demarcated, no other oropharyngeal swellingAbdominal: Palpations: Abdomen is soft. Musculoskeletal: General: Normal range of motion. Skin: Capillary Refill: Capillary refill takes less than 2 seconds. Neurological: General: No focal deficit present. Mental Status: She is alert. Psychiatric: Mood and Affect: Mood normal. Radiology:No orders to display Lab Results:Lab Results - No data to displayEKG:If EKG completed, see Procedure Note. Orders and Treatments:No orders of the defined types were placed in this encounter.Orders Placed This Encounter Medications chlorhexidine 0.12 % mouthwash predniSONE 20 mg tablet acetaminophen-codeine 300-30 mg tablet First Provider Eval:ED Events None No notes of EC Admission Criteria type on file.ED COURSEDiagnosis/Impression as of 10/08/22 1454 Fixed drug eruption Lesion of tongue Procedures: ProceduresMDM:Medical Decision MakingRiskPrescription drug management.A) Fixed Drug Eruption, Left lateral tongueDisposition/Condition: Prednisone, Peridex, T#3 prn, Referral to ENTED Disposition ED Disposition Disch - Home Condition Stable Comment -- Discharge Medications:Patient's Medications START taking these medications ACETAMINOPHEN-CODEINE 300-30 MG TABLET Take 1 tablet by mouth every 4 (four) hours as needed for Pain (scale 7-10) for up to 7 days. Indications: acute pain CHLORHEXIDINE 0.12 % MOUTHWASH Swish and spit out 15 mL in the morning and 15 mL in the evening. PREDNISONE 20 MG TABLET Take 1 tablet by mouth in the morning and 1 tablet in the evening. Do all this for 5 days. CONTINUE taking these medications which have NOT CHANGED ACETAMINOPHEN-CODEINE (TYLENOL-CODEINE #3) 300-30 MG TABLET Take 1 tablet by mouth every 6 (six) hours as needed for Pain unrelieved by non-narcotic analgesics. AMOXICILLIN 500 MG CAPSULE Take 1 capsule by mouth 3 (three) times daily. METRONIDAZOLE 500 MG TABLET Take 1 tablet by mouth 2 (two) times daily. NITROFURANTOIN&NIT. MACROCRYST (MACROBID) 100 MG CAPSULE Take 1 Cap by mouth 2 (two) times daily. PROMETHAZINE 25 MG TABLET Take 1 tablet by mouth every 6 (six) hours as needed for Nausea and Vomiting (N/V). TRAMADOL (ULTRAM) 50 MG TABLET Take 1 tablet by mouth every 6 (six) hours as needed for Pain (scale 7-10). Indications: acute pain START taking Modified Medications as Prescribed No medications on file STOP taking these medications No medications on file Follow-up: ENT and PCPElectronically signed by: Darrel Parker MD10/08/22 1449 04034-8Mobezhurm Emergency department ViqcOB0111-25-34F58:49:46Physician Emergency department NoteTXT1.2.840.680956.1.13.104.2.7. 2.375636|[id number] for patient zpie94292-9Sfznehaqy department Note[address] Mk[id number] 7MVKLFLNGUETAJBJIQLLIVJ3270-94-35G3 4:49:461.2.840.395943.1.72.3.15|1.2 .840.745317.1.13.104.2.7.2.727879_1 [id number] [facility]
[2023-05-09 01:47] LABS: Absolute Basophils 0.1 K/uL (0-0.5); Absolute Eosinophils 0.1 K/uL (0-0.5); Absolute Lymphocytes (CBC) 3.2 K/uL (0.7-4.9); Basophils % 0.6 % (0-1.3); Eosinophils % 0.7 % (0-4.4); Hematocrit 34.8 % (36.0-45.0); Hemoglobin 11.1 g/dL (12.0-15.0); Lymphocytes % 35.3 % (15.3-44.8); MCV 76.7 fL (80-100); MPV 8.9 fL (7.6-11.3); Platelets 289 thou/uL (152-406); RBC Red Blood Cell Count 4.53 M/uL (3.86-4.86)
[2023-05-09 02:09] LABS: Specific Gravity 1.014 (1.005-1.030); Urine Bacteria <20 /HPF (<20); Urine Bilirubin NEGATIVE (Negative); Urine Blood Negative (Negative); Urine Clarity Turbid (Clear); Urine Color Colorless (Yellow); Urine Glucose NEGATIVE (Negative); Urine Mucus Slight /HPF (None Seen); Urine Protein NEGATIVE (Negative); Urine RBC <5 /HPF (None Seen); Urine Urobilinogen Normal (Normal); Urine pH 5.5 (5.0-7.0)
[2023-05-09 02:10] LABS: Specific Gravity 1.014 (1.005-1.030)
[2023-05-09 02:22] LABS: Anion Gap 10.9 mEq/L (5.0-15.0); Bilirubin Total 0.3 mg/dL (0.2-1.0); Potassium 3.9 mEq/L (3.5-5.1)
[2023-05-09 05:13] LABS: Anisocytosis 1+; Blood Morphology Comment NOTED (NOT SEEN); Platelet Estimate ADEQ; White Blood Cell Scan OK (OK)
--- NOTE | 2023-05-09 05:35 | ER ---
Nurse's Notes [facility] Name: Clary Dias Age: 33 yrs Sex: Female : 1990 Arrival Date: 05/09/2023 Time: 01:13 Bed 5 Private MD: Diagnosis: Acute cholecystitis;Cholelithiasis with acute cholecystitis Presentation: 05/08 01:20 Chief complaint: Patient states: RUQ PAIN AND N/V STARTED 1 HR AGO. VOMITED X3. jj7 Coronavirus screen: At this time, the client does not indicate any symptoms associated with coronavirus-19. Ebola Screen: No symptoms or risks identified at this time. Initial Sepsis Screen: Does the patient meet any 2 criteria? No. Patient's initial sepsis screen is negative. Does the patient have a suspected source of infection? No. Patient's initial sepsis screen is negative. Risk Assessment: Do you want to hurt yourself or someone else? Patient reports no desire to harm self or others. Onset of symptoms. 01:20 Method Of Arrival: Ambulatory j7 01:20 Acuity: MARIA ISABEL 3 jj7 Triage Assessment: 01:20 General: Appears in no apparent distress. comfortable, Behavior is calm, cooperative, jj7 appropriate for age. Pain: Complains of pain in right upper quadrant. GI: Pt is actively vomiting bile, Reports upper abdominal pain, nausea, vomiting. Historical: - Allergies: 01:52 Sulfa (Sulfonamide Antibiotics); jj7 - PSHx: 01:52 section; jj7 - Immunization history:: Adult Immunizations not up to date, Client reports having NOT received the Covid vaccine. Flu vaccine is not up to date. - Social history:: Smoking status: Reported history of juuling and/or vaping. Patient uses alcohol, on a daily basis. Patient/guardian denies using street drugs, IV drugs. - Family history:: not pertinent. Screenin:20 [facility] ED Fall Risk Assessment (Adult) History of falling in the last 3 months, jj7 including since admission No falls in past 3 months (0 pts) Confusion or Disorientation No (0 pts) Intoxicated or Sedated No (0 pts) Impaired Gait No (0 pts) Mobility Assist Device Used No (0 pt) Altered Elimination No (0 pt) Score/Fall Risk Level 0 - 2 = Low Risk Oriented to surroundings, Maintained a safe environment, Educated pt \T\ family on fall prevention, incl call for assistance when getting out of bed. Abuse screen: Denies threats or abuse. Nutritional screening: No deficits noted. Tuberculosis screening: No symptoms or risk factors identified. Assessment: 01:20 Reassessment: SEE TRIAGE ASSESSEMENT. [facility] 01:20 GI: Bowel sounds present X 4 quads. Abd is soft Abdomen is tender to palpation in right [facility] upper quadrant. 02:20 Reassessment: Patient appears in no apparent distress at this time. No changes from [facility] previously documented assessment. Patient and/or family updated on plan of care and expected duration. Pain level reassessed. Patient is alert, oriented x 3, equal unlabored respirations, skin warm/dry/pink. 03:30 Reassessment: Patient appears in no apparent distress at this time. No changes from [facility] previously documented assessment. Patient and/or family updated on plan of care and expected duration. Pain level reassessed. Patient is alert, oriented x 3, equal unlabored respirations, skin warm/dry/pink. Vital Signs: 01:20 BP 120 / 85; Pulse 69; Resp 19; Temp 97.9; Pulse Ox 100% ; Weight 90.72 kg; Height 5 jj7 ft. 8 in. ; Pain 10/10; 02:30 BP 122 / 80; Pulse 57; Resp 17; Pulse Ox 98% ; Pain 2/10; j7 03:30 BP 102 / 71; Pulse 60; Resp 16; Pulse Ox 97% ; Pain 0/10; j7 04:30 BP 103 / 60; Pulse 63; Resp 16; Pulse Ox 100% ; Pain 2/10; j7 05:30 BP 106 / 68; Pulse 50; Resp 16; Pulse Ox 100% ; j7 06:07 BP 113 / 74; Pulse 57; Resp 17; Pulse Ox 100% ; Pain 0/10; j7 01:20 Body Mass Index 30.41 (90.72 kg, 172.72 cm) [facility] 01:20 Pain Scale: Adult jj7 02:30 Pain Scale: Adult jj7 03:30 Pain Scale: Adult jj7 04:30 Pain Scale: Adult jj7 06:07 Pain Scale: Adult jj7 Tommie Coma Score: 05:30 Eye Response: spontaneous(4). Motor Response: obeys commands(6). Verbal Response: sp4 oriented(5). Total: 15. ED Course: 01:14 Patient arrived in ED. gm2 01:20 Arm band placed on right wrist. Patient placed in an exam room, on a stretcher. jj7 01:20 Patient has correct armband on for positive identification. Bed in low position. Call jj7 light in reach. Side rails up X 1. Warm blanket given. 01:22 Jacques Singh MD is Attending Physician. sp4 01:37 Inserted saline lock: 20 gauge in left antecubital area, using aseptic technique. Blood rv1 collected. 01:37 CBC with Diff Sent. rv1 01:37 CMP Sent. rv1 01:37 Test, Urine Sent. rv1 01:37 Lipase Sent. rv1 01:37 Urinalysis w/ reflexes Sent. rv1 01:49 Triage completed. jj7 02:32 CT Abd/Pelvis - IV Contrast Only In Process Unspecified. EDMS 02:35 US Abdomen Limited In Process Unspecified. EDMS 05:35 Dong Stewart MD is Referral Physician. sp4 06:08 No provider procedures requiring assistance completed. IV discontinued, intact, jj7 bleeding controlled, No redness/swelling at site. Pressure dressing applied. Administered Medications: 01:39 Drug: NS 0.9% IV 1000 ml IV at 1 bolus Per protocol; 1000 mL bolus Route: IV; Rate: 1 jj7 bolus; Site: left antecubital; 02:43 Follow up: IV Status: Completed infusion jj7 01:39 Drug: Ondansetron IVP 4 mg IVP once; over 2 minutes Route: IVP; Site: left antecubital; jj7 02:42 Follow up: Response: Nausea is decreased jj7 01:39 Drug: Ketorolac IVP 30 mg IVP once Route: IVP; Site: left antecubital; jj7 02:42 Follow up: Response: Marked relief of symptoms jj7 01:39 Drug: metoCLOPramide IVP 20 mg IVP once; over 15 mins Route: IVP; Site: left j antecubital; 02:43 Follow up: Response: Marked relief of symptoms jj7 01:39 Drug: Famotidine IVP 20 mg IVP once; dilute with 10 mL 0.9% NaCl; give over 2 minutes jj7 Route: IVP; Site: left antecubital; 02:42 Follow up: Response: Marked relief of symptoms jj7 01:42 Drug: morphine IVP or IV 4 mg IVP once over 4 mins Route: IVP; Infused Over: 4 mins; jj7 Site: left antecubital; 02:42 Follow up: Response: Marked relief of symptoms jj7 06:04 Drug: Ibuprofen PO 800 mg PO once Route: PO; jj7 06:10 Follow up: Response: No adverse reaction jj7 06:04 Drug: Cephalexin PO 500 mg PO once Route: PO; jj7 06:10 Follow up: Response: No adverse reaction jj7 06:04 Drug: metroNIDAZOLE PO 500 mg PO once Route: PO; jj7 06:10 Follow up: Response: No adverse reaction jj7 06:04 Drug: Pantoprazole PO 40 mg PO once Route: PO; jj7 06:10 Follow up: Response: No adverse reaction jj7 06:04 Drug: Ondansetron PO 4 mg PO once Route: PO; jj7 06:10 Follow up: Response: No adverse reaction jj7 Medication: 01:20 VIS not applicable for this client. jj7 Outcome: 05:35 Discharge ordered by MD. avila 06:08 Discharged to home ambulatory, jj7 06:08 Condition: improved 06:08 Discharge instructions given to patient, Instructed on discharge instructions, follow up and referral plans. medication usage, Demonstrated understanding of instructions, follow-up care, medications, Prescriptions given X 5 06:10 Patient left the ED. jj7 Signatures: Dispatcher [employer] EDMS Jina Ma RN RN jw7 Connie Valero RN RN jj7 Maddy Vuong Sergey, MD MD sp4 Maria Isabel More 2
--- NOTE | 2023-05-09 05:36 | EDPHYS ---
Physician Documentation [facility] Name: Clary Dias Age: 33 yrs Sex: Female : 1990 Arrival Date: 05/09/2023 Time: 01:13 Bed 5 Private MD: ED Physician Jacques Singh HPI: 05/08 01:22 This 33 yrs old Black Female presents to ER via Unassigned with complaints of Abdominal sp4 Pain. 01:27 Patient presents with right upper quadrant abdominal pain starting 1 hour prior to sp4 arrival associated with 3 episodes of vomiting. History of irregular periods last menstrual period 03/24/2023, history of 3 pregnancies, 1 miscarriage 2 live via . Patient reports moderate to severe right upper quadrant pain starting 1 hour ago.. Historical: - Allergies: 01:52 Sulfa (Sulfonamide Antibiotics); jj7 - PSHx: 01:52 section; jj7 - Immunization history:: Adult Immunizations not up to date, Client reports having NOT received the Covid vaccine. Flu vaccine is not up to date. - Social history:: Smoking status: Reported history of juuling and/or vaping. Patient uses alcohol, on a daily basis. Patient/guardian denies using street drugs, IV drugs. - Family history:: not pertinent. ROS: 05:30 Constitutional: Negative for fever, chills, and weight loss, right upper abdominal pain sp4 positive nausea positive vomiting 05:30 All other systems are negative, Exam: 05:30 Constitutional: This is a well developed, well nourished patient who is awake, alert, sp4 uncomfortable appearing , writhing in pain. Head/Face: Normocephalic, atraumatic. Eyes: Pupils equal round and reactive to light, extra-ocular motions intact. Lids and lashes normal. Conjunctiva and sclera are not injected. Cornea within normal limits. Periorbital areas with no swelling, redness, or edema. ENT: Nares patent. No nasal discharge, no septal abnormalities noted. Tympanic membranes are normal and external auditory canals are clear. Oropharynx with no redness, swelling, or masses, exudates, or evidence of obstruction, uvula midline. Mucous membranes moist. Neck: Trachea midline, no thyromegaly or masses palpated, and no cervical lymphadenopathy. Supple, full range of motion without nuchal rigidity, or vertebral point tenderness. Chest/axilla: Normal chest wall appearance and motion. Nontender with no deformity. No lesions are appreciated. Cardiovascular: Regular rate and rhythm with a normal S1 and S2. No gallops, murmurs, or rubs. Normal PMI, no JVD. No pulse deficits. Respiratory: Lungs have equal breath sounds bilaterally, clear to auscultation and percussion. No rales, rhonchi or wheezes noted. No increased work of breathing, no retractions or nasal flaring. Abdomen/GI: Soft, with normal bowel sounds. No distension or tympany. No guarding or rebound, positive right upper quadrant abdominal pain tenderness moderate to severe. Back: No spinal tenderness. No costovertebral tenderness. Skin: Warm, dry with normal turgor. Normal color with no rashes, no lesions, and no evidence of cellulitis. MS/ Extremity: Pulses equal, no cyanosis. Neurovascular intact. Full, normal range of motion. Neuro: Awake and alert, GCS 15, oriented to person, place, time, and situation. Cranial nerves II-XII grossly intact. Motor strength 5/5 in all extremities. Sensory grossly intact. Psych: Awake, alert, with orientation to person, place and time. Behavior, mood, and affect are within normal limits Vital Signs: 01:20 BP 120 / 85; Pulse 69; Resp 19; Temp 97.9; Pulse Ox 100% ; Weight 90.72 kg; Height 5 jj7 ft. 8 in. ; Pain 10/10; 02:30 BP 122 / 80; Pulse 57; Resp 17; Pulse Ox 98% ; Pain 2/10; jj7 03:30 BP 102 / 71; Pulse 60; Resp 16; Pulse Ox 97% ; Pain 0/10; jj7 04:30 BP 103 / 60; Pulse 63; Resp 16; Pulse Ox 100% ; Pain 2/10; jj7 05:30 BP 106 / 68; Pulse 50; Resp 16; Pulse Ox 100% ; jj7 06:07 BP 113 / 74; Pulse 57; Resp 17; Pulse Ox 100% ; Pain 0/10; jj7 01:20 Body Mass Index 30.41 (90.72 kg, 172.72 cm) j7 01:20 Pain Scale: Adult jj7 02:30 Pain Scale: Adult jj7 03:30 Pain Scale: Adult jj7 04:30 Pain Scale: Adult jj7 06:07 Pain Scale: Adult jj7 Lenoir Coma Score: 05:30 Eye Response: spontaneous(4). Motor Response: obeys commands(6). Verbal Response: sp4 oriented(5). Total: 15. MDM: 01:27 Patient medically screened. sp4 04:29 ED course: TECHNIQUE: CT acquisition of the abdomen and pelvis following the sp4 administration of IV contrast. Coronal and sagittal reformatted images provided. This exam was performed according to departmental dose-optimization program which includes automated exposure control, adjustment of the mA and/or kV according to patient size, and/or use of iterative reconstruction technique. FINDINGS: SUPPORTIVE DEVICES: None. LOWER CHEST: Unremarkable. ABDOMEN AND PELVIS: Liver: Normal. Gallbladder and bile ducts: Distended gallbladder with small layering intraluminal densities. No obvious wall thickening. Intrahepatic biliary ductal prominence. Pancreas: Normal. Spleen: Normal. Adrenal glands: Normal. Kidneys and ureters: Normal. Bladder: Nondistended without evident abnormality. Reproductive organs: Unremarkable. GI tract: Normal caliber without wall thickening. No evidence of appendicitis. Lymph nodes: No evident adenopathy. Peritoneum: No evidence of ascites, fluid collection, or free air. Abdominal wall: Prior low transverse incision. Vessels: Unremarkable. MUSCULOSKELETAL: No acute osseous abnormality. IMPRESSION: 1. Gallbladder distention with cholelithiasis and mild intrahepatic biliary ductal prominence, better characterized on same day right upper quadrant ultrasound. 2. Otherwise unremarkable exam. . 05:21 ED course: IMPRESSION: 1. Gallbladder distention with cholelithiasis and mild sp4 intrahepatic biliary ductal prominence, better characterized on same day right upper quadrant ultrasound. 2. Otherwise unremarkable exam. . 05:23 ED course: EXAMINATION: US ABDOMEN LIMITED INDICATION: Female, 33 years old, ABD PAIN sp4 COMPARISON(S): CBCT abdomen/pelvis TECHNIQUE: Multiple sonographic images of the gallbladder were obtained with transabdominal ultrasound using 2D (grayscale), color Doppler and pulse Doppler techniques. FINDINGS: Liver: Normal parenchymal echogenicity. Hepatopetal portal venous flow. Biliary system: Distended with multiple layering intraluminal echogenic stones, with partial shadowing. Gallbladder wall thickness measures 2.5 mm. Common duct diameter measures 4 mm. Sonographic Mustafa's sign was not indicated positive or negative. Pancreas: Not evaluated. Right kidney: Not evaluated. Other: No visualized ascites. IMPRESSION: Cholelithiasis with borderline gallbladder wall thickening. A sonographic Mustafa's sign was not provided. Correlate with hepatic enzymes and nuclear medicine hepatobiliary scan if there is sufficient clinical concern for acute cholecystitis. . 05:30 ED course: EXAMINATION: US ABDOMEN LIMITED INDICATION: Female, 33 years old, ABD PAIN sp4 COMPARISON(S): CBCT abdomen/pelvis TECHNIQUE: Multiple sonographic images of the gallbladder were obtained with transabdominal ultrasound using 2D (grayscale), color Doppler and pulse Doppler techniques. FINDINGS: Liver: Normal parenchymal echogenicity. Hepatopetal portal venous flow. Biliary system: Distended with multiple layering intraluminal echogenic stones, with partial shadowing. Gallbladder wall thickness measures 2.5 mm. Common duct diameter measures 4 mm. Sonographic Mustafa's sign was not indicated positive or negative. Pancreas: Not evaluated. Right kidney: Not evaluated. Other: No visualized ascites. IMPRESSION: Cholelithiasis with borderline gallbladder wall thickening. A sonographic Mustafa's sign was not provided. Correlate with hepatic enzymes and nuclear medicine hepatobiliary scan if there is sufficient clinical concern for acute cholecystitis.. 05:33 Differential Diagnosis altered mental status, sepsis, flu, Acute cholecystitis, acute sp4 pancreatitis. Data reviewed: vital signs, nurses notes, lab test result(s), amylase and lipase, CBC, electrolytes, hepatic panel, urinalysis, radiologic studies, CT scan, ultrasound. Consideration of Admission/Observation Escalation of care including admission/observation considered. ED course: Patient was offered admission, she has signs of developing acute cholecystitis. Patient was offered general surgery consult. Patient at this time declines in favor of going home to try p.o. medications at home. Patient will be referred to general surgeon, patient will be prescribed cephalexin, Flagyl, ondansetron, tramadol, high-dose ibuprofen. Will advise 3 clear liquid diet for the next 24 hours after then strict fat-free diet until she can see general surgeon on outpatient basis. . 05/08 01:23 Order name: CBC with Diff; Complete Time: 05:23 sp4 05/08 01:23 Order name: CMP; Complete Time: 04:30 sp4 05/08 01:23 Order name: Lipase; Complete Time: 04:30 sp4 03/06 01:23 Order name: Test, Urine; Complete Time: 04:30 sp4 05/08 01:23 Order name: Urinalysis w/ reflexes; Complete Time: 04:30 sp4 05/08 02:07 Order name: CBC Smear Scan; Complete Time: 05:23 EDMS 05/08 01:26 Order name: CT Abd/Pelvis - IV Contrast Only sp4 05/08 01:27 Order name: US Abdomen Limited sp4 05/08 01:23 Order name: IV Saline Lock; Complete Time: 01:37 sp4 05/08 01:23 Order name: Labs collected and sent; Complete Time: 01:37 sp4 Administered Medications: 01:39 Drug: NS 0.9% IV 1000 ml IV at 1 bolus Per protocol; 1000 mL bolus Route: IV; Rate: 1 jj7 bolus; Site: left antecubital; 02:43 Follow up: IV Status: Completed infusion jj7 01:39 Drug: Ondansetron IVP 4 mg IVP once; over 2 minutes Route: IVP; Site: left antecubital; jj7 02:42 Follow up: Response: Nausea is decreased jj7 01:39 Drug: Ketorolac IVP 30 mg IVP once Route: IVP; Site: left antecubital; jj7 02:42 Follow up: Response: Marked relief of symptoms jj7 01:39 Drug: metoCLOPramide IVP 20 mg IVP once; over 15 mins Route: IVP; Site: left j antecubital; 02:43 Follow up: Response: Marked relief of symptoms jj7 01:39 Drug: Famotidine IVP 20 mg IVP once; dilute with 10 mL 0.9% NaCl; give over 2 minutes jj7 Route: IVP; Site: left antecubital; 02:42 Follow up: Response: Marked relief of symptoms jj7 01:42 Drug: morphine IVP or IV 4 mg IVP once over 4 mins Route: IVP; Infused Over: 4 mins; jj7 Site: left antecubital; 02:42 Follow up: Response: Marked relief of symptoms jj7 06:04 Drug: Ibuprofen PO 800 mg PO once Route: PO; jj7 06:10 Follow up: Response: No adverse reaction jj7 06:04 Drug: Cephalexin PO 500 mg PO once Route: PO; jj7 06:10 Follow up: Response: No adverse reaction jj7 06:04 Drug: metroNIDAZOLE PO 500 mg PO once Route: PO; jj7 06:10 Follow up: Response: No adverse reaction jj7 06:04 Drug: Pantoprazole PO 40 mg PO once Route: PO; jj7 06:10 Follow up: Response: No adverse reaction jj7 06:04 Drug: Ondansetron PO 4 mg PO once Route: PO; jj7 06:10 Follow up: Response: No adverse reaction jj7 Disposition Summary: 05/09/23 05:35 Discharge Ordered Notes: Location: Home sp4 Problem: new sp4 Symptoms: have improved sp4 Condition: Stable sp4 Diagnosis - Acute cholecystitis sp4 - Cholelithiasis with acute cholecystitis sp4 Followup: sp4 - With: Dong Stewart MD - When: 7 - 10 days - Reason: Recheck today's complaints Discharge Instructions: - Discharge Summary Sheet sp4 - Cholecystitis, [id number] sp4 Forms: - Patient Portal Instructions sp4 Prescriptions: - omeprazole 40 mg Oral capsule,delayed release (e.c.) - take 1 capsule ORAL route every morning; 30 capsule; Refills: 0, Product sp4 Selection Permitted - Cephalexin 500 mg Oral Capsule - take 1 capsule ORAL route every 8 hours for 10 days; 30 capsule; Refills: 0, sp4 Product Selection Permitted - Flagyl 500 mg Oral Tablet - take 1 tablet ORAL route every 8 hours for 10 days; 30 tablet; Refills: 0, sp4 Product Selection Permitted - Ibuprofen 800 mg Oral Tablet - take 1 tablet ORAL route every 8 hours As needed take with food; 30 tablet; sp4 Refills: 0, Product Selection Permitted - ondansetron 8 mg Oral Tablet,disintegrating - take 1 tablet ORAL route every 8 hours PRN nausea; 30 tablet; Refills: 0, sp4 Product Selection Permitted Signatures: Dispatcher [employer] Connie Leija RN RN jj7 Jacques Singh MD MD sp4
[2023-05-09 06:46] VITALS: BP 113/74; TEMP 97.9; O2SAT 100
--- NOTE | 2023-05-09 13:56 | RAD REPORT ---
EXAM DESCRIPTION: US - Abdomen Exam Limited - 05/09/2023 2:33 am CLINICAL HISTORY: Female, 33 years old, ABD PAIN COMPARISON: CBCT abdomen/pelvis TECHNIQUE: Multiple sonographic images of the gallbladder were obtained with transabdominal ultrasou nd using 2D (grayscale), color Doppler and pulse Doppler techniques. FINDINGS: Liver: Normal parenchymal echogenicity. Hepatopetal portal venous flow. Biliary system: Distended with multiple layering intraluminal echogenic stones, with partial shadowin g. Gallbladder wall thickness measures 2.5 mm. Common duct diameter measures 4 mm. Sonographic Mustafa 's sign was not indicated positive or negative. Pancreas: Not evaluated. Right kidney: Not evaluated. Other: No visualized ascites. IMPRESSION: Cholelithiasis with borderline gallbladder wall thickening. A sonographic Mustafa's sign was not provided. Correlate with hepatic enzymes and nuclear medicine hepatobiliary scan if there is sufficient clinical concern for acute cholecystitis. Electronically signed by: Delta Tran MD 05/09/2023 03:19 AM SEWING SUPERVISOR Due to temporary technical issues with the PACS/Fluency reporting system, reports are being signed by the in house radiologist without review as a courtesy to ensure prompt reporting. The interpreting r adiologist is fully responsible for the content of the report.
--- NOTE | 2023-05-09 14:00 | RAD REPORT ---
EXAM DESCRIPTION: CT - Abdomen Pelvis W Contrast - 05/09/2023 6:43 am CLINICAL HISTORY: Female, 33 years old, RUQ PAIN COMPARISON: Same day abdomen ultrasound TECHNIQUE: CT acquisition of the abdomen and pelvis following the administration of IV contrast. Cor onal and sagittal reformatted images provided. This exam was performed according to departmental dose -optimization program which includes automated exposure control, adjustment of the mA and/or kV accor ding to patient size, and/or use of iterative reconstruction technique. FINDINGS: SUPPORTIVE DEVICES: None. LOWER CHEST: Unremarkable. ABDOMEN AND PELVIS: Liver: Normal. Gallbladder and bile ducts: Distended gallbladder with small layering intraluminal densities. No obvi ous wall thickening. Intrahepatic biliary ductal prominence. Pancreas: Normal. Spleen: Normal. Adrenal glands: Normal. Kidneys and ureters: Normal. Bladder: Nondistended without evident abnormality. Reproductive organs: Unremarkable. GI tract: Normal caliber without wall thickening. No evidence of appendicitis. Lymph nodes: No evident adenopathy. Peritoneum: No evidence of ascites, fluid collection, or free air. Abdominal wall: Prior low transverse incision. Vessels: Unremarkable. MUSCULOSKELETAL: No acute osseous abnormality. IMPRESSION: 1. Gallbladder distention with cholelithiasis and mild intrahepatic biliary ductal pro minence, better characterized on same day right upper quadrant ultrasound. 2. Otherwise unremarkable exam. Electronically signed by: Delta Tran MD 05/09/2023 03:18 AM ACID CUTTER Due to temporary technical issues with the PACS/Fluency reporting system, reports are being signed by the in house radiologist without review as a courtesy to ensure prompt reporting. The interpreting r adiologist is fully responsible for the content of the report.
== END ==
LOC: ER 01:13
DX: K80.00 Calculus of gallbladder with acute cholecystitis without obstruction (principal); Z88.2 Allergy status to sulfonamides
CPT/HCPCS: 85025; 81001; 36415; 81025; 83690; 80053; 74177; 76705; Q9967; Q0162; J2765; J2405; J7030; 96361; 96374; 96375; 99284